=== PATIENT | female | born 1950 | race Caucasian/White ===

== ENCOUNTER → 2019-11-13 08:51 | Outpatient (CLI) | payer MEDICARE, SELFPAY ==
--- NOTE | ~2019-11-13 | MMUS_ITS ---
EXAMINATION: MM diagnostic matilda LT w wayne, US breast LT limited HISTORY: Six-month follow-up for probably benign left breast asymmetry TECHNIQUE: Craniocaudal, mediolateral, and mediolateral oblique 3-D tomosynthesis images of the left breast were performed and synthetic 2-D images were generated. Spot compression views are also obtain ed. CAD analysis was submitted and interpreted. High resolution limited left breast ultrasound was pe rformed. COMPARISON: 03/30/2019, 03/23/2019, 01/21/2018 BREAST PARENCHYMAL COMPOSITION: There are scattered areas of fibroglandular density. FINDINGS: MAMMOGRAPHIC FINDINGS: There is an approximately 7 mm irregular, equal density mass with spiculated margins in the posterior third of the breast at the 10:00 location 6.5 cm from the nipple. No associated calcification is carole ntified. ULTRASOUND: There is a subtle 8 mm x 6 mm irregular hypoechoic mass with indistinct and angular margins at the 10 :00 location 5 cm from the nipple. The mass demonstrates posterior acoustic shadowing without definit e internal vascularity. IMPRESSION: 1. Suspicious mass at the 10:00 location in the left breast. 2. Ultrasound-guided biopsy is recommended. BI-RADS category 4, suspicious findings. Reviewed, dictated and finalized at location A. WEAVER IMPRESSION: 1. Suspicious mass at the 10:00 location in the left breast. 2. Ultrasound-guided biopsy is recommended. BI-RADS category 4, suspicious findings.
== END ==
PROVIDERS: Visit Provider Obstetrics & Gynecology Gynecology
DX: R92.8 Other abnormal and inconclusive findings on diagnostic imaging of breast (principal)
CPT/HCPCS: 76642; 77061; 77065; G0279

== ENCOUNTER 2019-12-01 10:32 | Outpatient (CLI) | payer MEDICARE, SELFPAY ==
--- NOTE | ~2019-12-01 | MMUS_ITS ---
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 Ultrasound-guided core biopsy is requested to evaluate for malignancy. TECHNIQUE AND FINDINGS: The risks and potential benefits of the procedure were discussed with the patient, and written inform ed consent was obtained. After sterile preparation of the left breast, 1% lidocaine was utilized for local anesthesia. 1% lidocaine with epinephrine was used for deep anesthesia. A 10G vacuum-assisted biopsy gun needle was advanced through to the outer edge of the region of inter est from a medial approach utilizing sonographic guidance. A total of three tissue core samples were obtained through the lesion. An Inrad tissue marker clip was then placed at the biopsy site. Hemost asis was achieved. The patient tolerated procedure well and there was no evidence of immediate complication. The patien t was given verbal instructions partly is from the department. Left breast mammograms to document ti ssue marker clip placement. The tissue samples were submitted to surgical pathology for histologic an alysis.] IMPRESSION: 1. Successful ultrasound-guided vacuum-assisted biopsy of left breast mass with tissue marker placem ent. Please refer to pathology report for histologic analysis. Reviewed, dictated and finalized at location A. TAIN OPERATOR IMPRESSION: 1. Successful ultrasound-guided vacuum-assisted biopsy of left breast mass wit h tissue marker placement. Please refer to pathology report for histologic anal ysis.
== END 2019-12-01 10:33 | disposition home or self-care (01) ==
PROVIDERS: Visit Provider Surgery
DX: R92.8 Other abnormal and inconclusive findings on diagnostic imaging of breast (principal)
CPT/HCPCS: 19083; 88305; A4648

== ENCOUNTER 2020-05-23 13:24 | Outpatient (CLI) | payer MEDICARE, SELFPAY ==
--- NOTE | ~2020-05-23 | US_ITS ---
EXAMINATION: US thyroid DATE: 05/23/2020 14:07 INDICATION: Thyroid nodule. Parathyroid adenoma. TECHNIQUE: Multiple ultrasound images of the thyroid were obtained. COMPARISON: 05/25/2019 and 09/17/2016 FINDINGS: The right thyroid lobe measures 6.1 x 2.8 x 2.0 cm. The left thyroid lobe measures 5.1 x 2.1 x 1.8 c m. There are a couple wider than tall solid hypoechoic nodules without echogenic foci in the right t hyroid lobe (TI-RADS 4, moderately suspicious , FNA if >=1.5 cm, annual followup is >1 cm), the large st in the deep mid right thyroid lobe measures 2.3 x 1.1 x 1.7 cm and the smaller at the lower pole m easures 1.3 x 1.3 x 0.8 cm. The larger was biopsied on 10/16/2016 yielding benign pathology on fine-ne edle aspiration. Both are not significantly changed since the prior study. There is coarsened echotex ture throughout the thyroid. No other nodules identified. IMPRESSION: 1. Thyroid nodules, unchanged since 09/17/2016. Recommend continued ultrasound follow-up. Reviewed, dictated and finalized at location A.
== END 2020-05-23 13:25 | disposition home or self-care (01) ==
PROVIDERS: PCP Family Medicine; Visit Provider Internal Medicine Endocrinology, Diabetes & Metabolism
DX: E04.2 Nontoxic multinodular goiter (principal); E21.3 Hyperparathyroidism, unspecified
CPT/HCPCS: 76536

== ENCOUNTER → 2020-06-28 14:15 | Outpatient (CLI) | payer MEDICARE, SELFPAY ==
--- NOTE | ~2020-06-28 | MMUS_ITS ---
EXAMINATION: MM diagnostic matilda BI w wayne, US breast LT limited HISTORY: Six-month follow-up post left breast biopsy. Screening of right breast. TECHNIQUE: Bilateral full field ML, MLO and cc and spot left ML, MLO and cc 3-D tomosynthesis images were performed and synthetic 2-D images were generated. CAD analysis was submitted and interpreted. H igh resolution upper inner quadrant left breast ultrasound was performed. COMPARISON: 03/23/2019 bilateral digital screening mammogram 03/30/2019 diagnostic left digital mammogram and left Limited breast ultrasound 11/13/2019 diagnostic left digital mammogram and limited left breast ultrasound 12/01/2019 left ultrasound guided breast biopsy BREAST PARENCHYMAL COMPOSITION: There are scattered areas of fibroglandular density. FINDINGS: MAMMOGRAPHIC FINDINGS: An approximately 6 mm thick related mass is suggested in the posterior aspect of the upper inner quad rant of the left breast. A biopsy marker situated approximately 1 cm anteriorly. There are scattered bilateral benign calcifications. No suspicious mass or architectural distortion i s noted elsewhere. ULTRASOUND: At 10:00 5 cm from the nipple there is a hypoechoic irregular shadowing lesion measuring approximatel y 6.4 x 4.6 mm dimension. Ultrasound-guided biopsy is recommended. IMPRESSION: Asymmetric approximately 6 mm irregular opacity in the posterior aspect of the left breast at 10:00 5 cm from nipple; repeat ultrasound-guided biopsy is recommended BI-RADS category 4, suspicious findings. Reviewed, dictated and finalized at location A. IMPRESSION: Asymmetric approximately 6 mm irregular opacity in the posterior aspect of the left breast at 10:00 5 cm from nipple; repeat ultrasound-guided biopsy is recom mended BI-RADS category 4, suspicious findings.
== END ==
PROVIDERS: Visit Provider Surgery
DX: R92.8 Other abnormal and inconclusive findings on diagnostic imaging of breast (principal)
CPT/HCPCS: 76642; 77062; 77066; G0279

== ENCOUNTER 2020-07-13 11:07 | Outpatient (CLI) | payer MEDICARE, SELFPAY ==
--- NOTE | ~2020-07-13 | MR_ITS ---
MR breast BI wo/w con 07/14/2020 13:33 CDT INDICATION: Abnormal breast mass. Palpable breast lump. Previous benign biopsy. TECHNIQUE: MRI of the breasts perform using standard protocol pre-and post IV contrast with the follo wing sequences: Axial T2 STIR, axial T1, axial vibrant T1 with fat suppression precontrast and multip hasic postcontrast. COMPARISON: Comparison to multiple prior studies sequentially, with oldest reviewed study dated 01/04. FINDINGS: There is moderate background parenchymal enhancement. There are in numerable enhancing nonm ass-like foci in both breasts. At 2:00, 4 cm from the nipple, middle third there is an irregular shap ed mass with rapid washout enhancement measuring 1.5 x 0.8 x 1.0 cm. At 10:00, 4.7 cm from the nipple there is an irregular shaped area of nonmasslike enhancement measuring 1.4 x 0.3 x 0.9 cm. There is rapid washout enhancement. At 6:00 there is nonmasslike enhancement measuring 1 x 0.5 x 0.7 cm, 4.6 c m from the nipple. At 8:00, 5.3 cm from the nipple there is nonmasslike enhancement measuring 5 x 4 x 6 mm with rapid washout enhancement. The 4:00, 4.8 cm from the nipple, there is a focus of rapid was hout enhancement. No evidence of signal abnormalities in the axillary or internal mammary node distri butions. LEFT BREAST: There is moderate background parenchymal enhancement. At 12:00, 5.6 cm from the nipple t here is a slightly irregular shaped mass measuring 8 x 4 x 9 mm with rapid washout enhancement. At 10 :00, 6.5 cm from the nipple, there is an 8 x 7 x 5 mm mass with rapid washout enhancement. At 10:00, 5.2 cm from the nipple there is a 6 x 5 x 4 mm enhancing mass with rapid washout kinetics. At 10:00, 5.9 cm from the nipple there is a foci of rapid washout enhancement measuring 4 x 4 x 4 mm. No eviden ce of signal abnormalities in the axillary or internal mammary node distributions. IMPRESSION: 1: Multiple bilateral abnormally enhancing masses as well as innumerable areas of nonmasslike enhance ment in both breasts. Second Look complete bilateral breast ultrasound is recommended for complete ev aluation. At least one of the enhancing left breast masses likely corresponds to the mass identified on recent ultrasound dated 06/28/2020. Recommend radiologist be present during the examination for cor relation purposes. BI-RADS CATEGORY 0 - INCOMPLETE STUDY, NEED ADDITIONAL IMAGING EVALUATION. Reviewed, dictated and finalized at location A. IMPRESSION: 1: Multiple bilateral abnormally enhancing masses as well as innumerable areas of nonmasslike enhancement in both breasts. Second Look complete bilateral sascha st ultrasound is recommended for complete evaluation. At least one of the enhan cing left breast masses likely corresponds to the mass identified on recent ult rasound dated 06/28/2020. Recommend radiologist be present during the examinatio n for correlation purposes. BI-RADS CATEGORY 0 - INCOMPLETE STUDY, NEED ADDITIONAL IMAGING EVALUATION.
[2020-07-13 12:11] LABS: Estimated Glomerular Filt Rate > 60
== END 2020-07-13 11:08 | disposition home or self-care (01) ==
PROVIDERS: PCP Family Medicine; Visit Provider Surgery
DX: N63.22 Unspecified lump in the left breast, upper inner quadrant (principal); N63.11 Unspecified lump in the right breast, upper outer quadrant
CPT/HCPCS: 77049; A9577; C8908

== ENCOUNTER → 2020-08-03 08:50 | Outpatient (CLI) | payer MEDICARE, SELFPAY ==
--- NOTE | ~2020-08-03 | US_ITS ---
EXAMINATION: US breast LT limited HISTORY: Patient presents for second look ultrasound examination after MRI. A left breast biopsy was performed in November 2019 which returned a benign result. Post biopsy mammogram demonstrates the bi opsy marker approximately 1.5 cm anterior to the mammographic finding. Diagnostic mammogram and ultra sound were performed on 06/28/2020 at which time repeat biopsy was recommended. Subsequent to that exa mination, breast MRI was performed on 07/13/2010 demonstrated a persistent mass in the inner left sascha st. TECHNIQUE: Limited left breast ultrasound was performed. FINDINGS: There is an 8 mm oval, not parallel, hypoechoic mass with indistinct margins at the 10:00 l ocation 5 cm from the nipple. The mass demonstrates posterior acoustic shadowing and peripheral vascu larity. Complete bilateral breast ultrasound was recommended on intervening MRI examination due to no nmass enhancement in the breasts however this is felt to represent background parenchymal enhancement and therefore targeted left breast ultrasound was performed. IMPRESSION: Suspicious left breast mass for which repeat biopsy is recommended. Given that ultrasound biopsy has been previously attempted, the mass is somewhat subtle on the provided cine images, and that the mass is visible on mammographic images, recommendation would be for stereotactic biopsy. This plan and re asoning were discussed with both the patient and Dr. Spence. BI-RADS category 4, suspicious findings. Reviewed, dictated and finalized at location A. IMPRESSION: Suspicious left breast mass for which repeat biopsy is recommended. Given that ultrasound biopsy has been previously attempted, the mass is somewhat subtle on the provided cine images, and that the mass is visible on mammographic images, recommendation would be for stereotactic biopsy. This plan and reasoning were discussed with both the patient and Dr. Spence. BI-RADS category 4, suspicious findings.
== END ==
PROVIDERS: PCP Family Medicine; Visit Provider Surgery
DX: R92.8 Other abnormal and inconclusive findings on diagnostic imaging of breast (principal)
CPT/HCPCS: 76642

== ENCOUNTER 2020-08-12 10:08 | Outpatient (CLI) | payer MEDICARE, SELFPAY ==
--- NOTE | ~2020-08-12 | MM_ITS ---
MM post biopsy diagnostic LT, MM stereotactic specimen LT, MM stereotactic bx LT EXAMINATION: MM post biopsy diagnostic LT, MM stereotactic specimen LT, MM stereotactic bx LT INDICATION: Abnormal mass in the left breast. Stereotactic core biopsy is requested evaluate for mal ignancy.] TECHNIQUE AND FINDINGS: The risks and potential benefits of the procedure were discussed with the patient and written informe d consent was obtained. The patient was placed in the prone position clustered at the table with the left breast in craniocaudal compression, and the area of interest was localized and targeted utilizi ng digital imaging with stereotaxis. After sterile preparation of the skin, 1% lidocaine was utilized for local anesthesia at the skin pun cture site and 1% lidocaine with epinephrine was utilized for deeper local anesthesia/is about the bi opsy site. A 9G [place] vacuum assisted biopsy needle was advanced to the level of the mass of interes t from a cephalad approach utilizing stereotactic guidance and a total of 6 tissue core biopsies were obtained. A specimen radiograph demonstrates that the calcifications of interest are included within the tissue cores. A tissue marker clip was then placed at the biopsy site. The needle was removed and hemosta sis was achieved. The patient tolerated the procedure well and there is no evidence of significant i mmediate complication. The patient was given verbal as well as written postprocedural instructions p rior to discharge from the department. Tissue cores were submitted to surgical pathology for histolo gic analysis. A 2-view left unilateral digital mammogram was obtained post procedure and this demonstrates that the tissue marker clip is in expected position. IMPRESSION: 1. Successful stereotactic biopsy of mass in the upper inner quadrant of the left breast, followed b y tissue marker clip placement. Please refer to pathology report for histologic analysis. Reviewed, dictated and finalized at location A. 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 Successful stereotactic biopsy of mass in the upper inner quadrant of the l eft breast, followed by tissue marker clip placement. Please refer to patholog y report for histologic analysis. IMPRESSION: 1. Successful stereotactic biopsy of mass in the upper inner quadrant of the l eft breast, followed by tissue marker clip placement. Please refer to patholog y report for histologic analysis.
== END 2020-08-12 10:09 | disposition home or self-care (01) ==
PROVIDERS: PCP Family Medicine; Visit Provider Surgery
DX: N63.22 Unspecified lump in the left breast, upper inner quadrant (principal)
CPT/HCPCS: 19081; 77065; 88305; 88342; A4648

== ENCOUNTER 2020-08-18 11:58 | Outpatient (CLI) | payer MEDICARE, SELFPAY ==
--- NOTE | 2020-08-18 12:00 | ECG_ITS ---
Measurements Intervals [place] Rate: 54 P: 43 RI: 220 QRS: 32 QRSD: 106 T: 44 QT: 431 QTc: 412 Interpretive Statements SINUS BRADYCARDIA WITH FIRST DEGREE AV BLOCK BASELINE ARTIFACT- I, III, AVR, AVL, AVF ABNORMAL ECG Electronically Signed On 08-18-2020 14:51:07 GARAGE WORKER by Rajesh Lu D.O.
[2020-08-18 12:31] LABS: Basophils Absolute Auto 0.1 K/mm3 (0.0-0.1); Basophils Percent Auto 1.1 % (0.2-1.2); Eosinophils Absolute Auto 0.6 K/mm3 (0-0.3); Eosinophils Percent Auto 6.9 % (0-4.4); Hematocrit 44.2 % (37.0-47.0); Hemoglobin 14.1 g/dL (12.0-15.0); Immature Granulocyte Absolute 0.02 K/mm3 (0.00-0.031); Immature Granulocyte Percent A 0.2 % (0-0.5); Lymphocytes Absolute Auto 1.95 K/mm3 (0.9-3.2); Lymphocytes Percent Auto 23.9 % (18.3-44.2); Mean Corpuscular HGB Conc 31.9 g/dl (32-36); Mean Corpuscular Volume 90.9 fl (80-100); Mean Platelet Volume 9.4 fl (7.4-10.4); Monocytes Absolute Auto 0.6 K/mm3 (0.1-0.6); Monocytes Percent Auto 7.1 % (2.6-8.5); Neutrophils Percent Auto 60.8 % (45.5-73.1); Platelet Count Result 366 k/mm3 (150-375); Red Blood Count 4.86 M/mm3 (4.2-5.4); Red Cell Distribution Width 13.2 % (11.5-14.5); White Blood Count 8.2 K/mm3 (4.5-10.0)
[2020-08-18 12:44] LABS: Alanine Aminotransferase 19 U/L (4-35); Albumin Level 4.7 g/dL (3.5-5.1); Alkaline Phosphatase 88 U/L (38-126); Anion Gap 6 mmol/L (8-16); Aspartate Amino Transferase 35 U/L (14-36); Bilirubin,Total 0.6 mg/dL (0.2-1.3); Blood Urea Nitrogen 10 mg/dL (7-17); Calcium 11.2 mg/dL (8.4-10.2); Carbon Dioxide 34 mmol/L (22-30); Chloride 104 mmol/L (98-107); Estimated Glomerular Filt Rate > 60; Glucose 111 mg/dL (65-105); Potassium 4.4 mmol/L (3.4-5.0); Sodium 144 mmol/L (137-145)
[2020-08-18 12:52] LABS: Lithium 0.8 mmol/L (0.6-1.2)
== END 2020-08-18 11:59 | disposition home or self-care (01) ==
LOC: ANHSURGERY 12:00
PROVIDERS: Anesthesiology; PCP Family Medicine; Visit Provider Surgery
DX: Z01.818 Encounter for other preprocedural examination (principal); R00.1 Bradycardia, unspecified; I44.2 Atrioventricular block, complete
CPT/HCPCS: 36415; 80053; 80178; 85025; 93005

== ENCOUNTER 2020-08-26 00:15 | Outpatient (CLI) | payer MEDICARE, SELFPAY ==
[2020-08-26 19:24] LABS: SARS-CoV-2 RNA PCR Negative
== END 2020-08-26 00:16 | disposition home or self-care (01) ==
LOC: ANHCOVIDDT 00:16
PROVIDERS: Anesthesiology; PCP Family Medicine; Visit Provider Surgery
DX: Z01.812 Encounter for preprocedural laboratory examination (principal); Z20.828 Contact with and (suspected) exposure to other viral communicable diseases
CPT/HCPCS: 87635; C9803; U0003

== ENCOUNTER 2020-08-29 00:52 | Day surgery (SDC) | payer MEDICARE, SELFPAY ==
[2020-08-17 15:10] VITALS: BMI 22.6
[2020-08-29] VITALS (13 sets, daily range): BP systolic 124–179; BP diastolic 58–97; PULSE 51–86; RESP 12–20; TEMP 36.1–36.6; O2SAT 92–100
--- NOTE | ~2020-08-29 | NM_ITS ---
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 The procedure was performed by Dr. Montanez. IMPRESSION: 1. Status post left breast injection of Technetium 99M sulfur colloid for purpose of sentinel lymph node biopsy. Reviewed, dictated and finalized at location A. URE ARTIST IMPRESSION: 1. Status post left breast injection of Technetium 99M sulfur colloid for purp ose of sentinel lymph node biopsy.
--- NOTE | ~2020-08-29 | MM_ITS ---
MM needle loc DATE: 08/29/2020 08:34 INDICATION: Preoperative mammographically guided wire localization of barrel mammographic marker in u pper inner posterior left breast TECHNIQUE: The purpose of the procedure, technique and potential competitions were discussed with the patient. The patient verbalized understanding and gave consent. Timeout procedure was performed. The left breast was placed in biopsy grid apparatus and mediolateral position. The skin was prepared with sterile Betadine solution. 1% lidocaine local anesthetic was administered to the skin. A 7 cm [employer] needle was introduced into the area adjacent to the barrel radiopaque marker from medial approach. ML exposure confirmed appropriate direction of the needle. Craniocaudal exposures were mad e to assist with adjustment of the needle depth appropriately. Once in position, the wire was engaged through the tip of the needle and the needle was withdrawn. Final ML and CC exposures reveal the wire in immediate contiguity with the barrel mammographic marker and associated soft tissue mass. IMPRESSION: Successful mammographically guided wire localization of barrel radiopaque marker in poste rior aspect of upper inner quadrant of left breast Reviewed, dictated and finalized at Location A. Reviewed, dictated and finalized at location A. RIAL EXPEDITOR IMPRESSION: Successful mammographically guided wire localization of barrel radi opaque marker in posterior aspect of upper inner quadrant of left breast
--- NOTE | ~2020-08-29 | MM_ITS ---
MM surgical specimen LT DATE: 08/29/2020 10:46 INDICATION: Surgical excision of barrel radiopaque biopsy marker TECHNIQUE: Single noncompression digital mammographic exposure of surgical breast soft tissue specime n COMPARISON: 08/29/2020 left mammographic localization FINDINGS: The barrel and ribbon biopsy markers are present within the surgical specimen. IMPRESSION: Successful surgical excision of biopsy markers Reviewed, dictated and finalized at Location [facility]. Reviewed, dictated and finalized at location A. 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
--- NOTE | 2020-08-29 08:00 | SUR.PREOP ---
0720-[facility] AWARE PT HERE AND READY TO TRANSPORT, SHE WILL CALL US WHEN READY. 0745-PT TRANSPORTED PER W/C TO MAMMOGRAPHY.
[2020-08-29] MEDS: LACTATED RINGERS 1,000 ML 30 ML IV CONT ×3 (08:50→14:40)
--- NOTE | 2020-08-29 08:56 | WPDHPUPDATE1 ---
History and Physical Update Update Date/Time: 08/29/20 08:56 History and Physical has been reviewed, including an updated exam of the patient. There are NO changes in the patient's condition. Risks, benefits, and alternatives of a Left sentinel lymph node biopsy, Left needle localized breast lumpectomy, possible left axillary dissection have been discussed and questions answered. Patient agrees to proceed with procedure.
--- NOTE | 2020-08-29 09:01 | WPDANESEPPF ---
Anes - Initial Pre Proc Eval Procedure: Operation Date: 08/29/20 09:30 Proposed Procedures p Left Breast Lumpectomy with [place] Lymph Node Biopsy - Fadi Spence MD s Left Breast Biopsy with Ultrasound and/or Mammogram Guided Needle Localization - Fadi Spence MD Date/Time: 08/29/20 09:01 Surgeon: Fadi Spence MD Pre Op Diagnosis: left breast CA Patient Data Age: 70 Gender: F Height: 5 ft 4 in Weight: 59.5 kg Last Vital Signs Temp 36.6 C 08/29/20 06:45 Pulse 64 08/29/20 06:45 Resp 20 08/29/20 06:45 BP 150/77 H 08/29/20 06:45 Pulse Ox 100 08/29/20 06:45 Allergies Allergy/AdvReac Type Severity Reaction Status Date / Time Penicillins Allergy Unknown rash Verified 08/29/20 07:42 Home Medications Medication Instructions Recorded Confirmed Type atorvastatin 20 mg tablet 20 mg PO DAILY 11/19/19 08/29/20 History lithium carbonate 300 mg capsule 300 mg PO BID 11/19/19 08/29/20 History lorazepam 0.5 mg tablet 0.25 mg PO HS 11/19/19 08/29/20 History multivitamin 1 tablet PO DAILY 11/19/19 08/29/20 History cholecalciferol (vitamin D3) 125 125 mcg PO DAILY 03/29/20 08/29/20 History mcg (5,000 unit) capsule aspirin-caffeine [Anacin] 2 tablet PO Q6H PRN 08/17/20 08/29/20 History propranolol 30 mg PO BID 08/17/20 08/29/20 History Patient hx anesthesia problems: none Family hx anesthesia problems: none PMFSH Past Medical History Medical History Bipolar 1 disorder High cholesterol History of asthma HTN (hypertension) Surgical History Surgical History H/O breast biopsy Hx laparoscopic cholecystectomy 10 + yrs ago Family History Family History Mother Diabetes mellitus Hypertension Grandparent Malignant neoplasm of prostate Diabetes mellitus Cerebrovascular accident Other Family history of hearing loss Social History Social History Smoking status: Never smoker Alcohol intake: never Substance use: never Living arrangements: with family Additional living arrangements comments: Gender identity (if verbalized by the patient): Female Spiritual care concerns: No Anes - Eval Final PreProcedure Day of Procedure 08/29/20 09:01 Patient weight: normal Heart: regular rate and rhythm Lungs: clear to auscultation Airway: Mallampati scale class II Neurological: alert and oriented Last oral intake: >/= 8 hours ASA classification: III Emergent: no Anesthetic plan: proceed Anesthesia type and monitoring: general LMA and standard monitoring Informed Consent: The patient's anesthetic plan and its attendant risks and benefits were discussed with the patient/family/POA. Questions were solicited and answers provided to the satisfaction of the patient/family/POA.
[2020-08-29] MEDS: CLINDAMYCIN 900 MG/D5W 50 ML 900 MG/50 ML PIGGYBACK 50 MG IVPB (09:07)
--- NOTE | 2020-08-29 11:25 | SUR.OPER ---
EBL:10cc
--- NOTE | 2020-08-29 11:54 | PM.PROC ---
Procedure Note - Detailed Date of procedure: 08/30/20 Pre-op diagnosis: left breast CA Procedure performed: needle localized Left breast lumpectomy Left sentinel lymph node biopsy times 1 injection of Lymphazurin blue (for identification sentinel lymph). Description of procedure: The patient was seen pre-operatively in the holding area, and I marked the patient on the operative side. The left. She was brought to the operating room and anesthesia delivered. She was prepped and draped in the usual sterile fashion. The arm on this side was placed into a stockinette and wrapped with a Coband. It was then draped into the field sterile. A timeout was performed confirming patient and site of surgery. Then after inspection of the breast I carefully used Lymphazarin blue, 6 cc, to inject 1 cc in the subcuticular area the areola at the edge of the areola at [address]. This was done with a 22 gauge needle and then the breast was massaged for 1 minute. An axillary incision was made, and the subcutaneous tissues were dissected toward the area of the second intercostal-brachail nerve with electrocautery and Approximately 1 7 Vater deep in this area there appeared to be either a small subcutaneous lymph node or a lipoma. This was excised tested with the Navigator probe and was not hot therefore labeled as a separate specimen lipoma versus lymph node subcutaneous non sentinel lymph node tissue. Then the clavipectoral fascia was incised with electrocautery. Using the sentinel lymph node probe, the sentinel lymph node was identified and the count in vivo was 84 . I carefully dissected out what appeared to be a lymph node that was marked with high counts and also with a good amount of blue green lymphatics heading directly to it. There was some blue green dye that appeared to be in the lymph node in the center of the approximately 2 x 1 cm area of the Lt.axillary tissue removed. Then an ex vivo 10- second count of 760 was recorded. The count in the axilla after removing this lymph node was between 24 and 54, for background noise. We could still see several channels of dark blue to dye and following these there appeared to be a possible very small lymph node which was also excised and sent as sentinel lymph node #2. (later reported by pathology as no lymph node tissue present. ) Therefore, only 1 sentinel lymph node was removed. The sentinel lymph node # 1 was sent fresh for pathologic evaluation with touch preps. The wound was irrigated, hemostased, and closed with 3-0 Vicryl and 4-0 Monocryl. That wound was draped away with a sterile towel and the operative breast was examined. The localizing wire was noted to be entering the breast in the upper inner quadrant angled slightly transverely and laterally. This was reviewed on the mammogram films. The localizing wire was entering just above and medial to the nipple-areolar complex in that area. A transverse incision was made along the wire and the tissue surrounding the distal end of the wire was removed widely with electrocautery. I believe that I dissected down into the breast at least 1.5 cm before starting to widen my excision area around the end of the wire. The specimen was oriented with the use of silk sutures placing a long suture lateral and a short suture superior on the specimen. We also noted that the wire was coming in at the superficial or anterior border. I did send the breast tissue for fresh tissue exam, immediate report requested at pathology. We waited to hear from pathology. First we heard that touch preps on the sentinel lymph node # 1 were negative. As I a began the incision for the sentinel lymph node biopsy we ran into what appeared to be either a lipoma or a superficial subcutaneous lymph node. This was sent as a non sentinel lymph node since it did not have any radioactivity in it when probed with the Navigator probe. Will await permanent pathology on this. Following this pat
[2020-08-29] MEDS: fentaNYL CITRATE INJ (*CRX) 100 MCG/2 ML VIAL 25 MCG IV PUSH ×3 (11:58→12:21)
[2020-08-29] MEDS: ONDANSETRON INJ 4 MG/2 ML VIAL IV PUSH (14:46)
[2020-08-29] MEDS: diphenhydrAMINE HCl INJ 50 MG/ML VIAL 25 MG IV PUSH (15:42)
== END 2020-08-29 16:30 | disposition home or self-care (01) ==
PROVIDERS: PCP Family Medicine; Visit Provider Surgery
PROC: (CPT 19301; principal; 2020-08-29 09:30)
PROC: (CPT 19301; 2020-08-29 09:30)
DX: C50.212 Malignant neoplasm of upper-inner quadrant of left female breast (principal); Z17.0 Estrogen receptor positive status [ER+]; D17.22 Benign lipomatous neoplasm of skin and subcutaneous tissue of left arm; I10 Essential (primary) hypertension; E78.00 Pure hypercholesterolemia, unspecified; F31.9 Bipolar disorder, unspecified
CPT/HCPCS: 19301; 38525; 19281; 38792; 76098; 88300; 88305; 88307; 88329; 88333; 88342; A9270; A9520; C1713; C1769; J1100; J1170; J1200; J2250; J2405; J2704; J3010; J7120

== ENCOUNTER → 2020-09-12 13:49 | Outpatient (CLI) | payer MEDICARE, SELFPAY ==
--- NOTE | ~2020-09-12 | US_ITS ---
EXAMINATION: US pelvic complete DATE: 09/12/2020 14:32 INDICATION: Postmenopausal bleeding TECHNIQUE: Multiple transabdominal sonographic images of the pelvis were obtained. Transvaginal exami nation was attempted however technologist noted uterine prolapse. COMPARISON: 02/27/2017; CT, 02/05/2019 FINDINGS: The uterus measures 4.8 x 2.8 cm. The endometrial complex measures 3 mm. A chronic calcific ation of the uterine body is noted. The ovaries are not visualized however no adnexal abnormality is seen. There is no free fluid in the pelvis. IMPRESSION: 1. No sonographic correlate for the patient's symptoms. Reviewed, dictated and finalized at location A. 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
== END ==
PROVIDERS: PCP Family Medicine; Visit Provider Obstetrics & Gynecology Gynecology
DX: Z95.0 Presence of cardiac pacemaker (principal)
CPT/HCPCS: 76856

== ENCOUNTER → 2021-05-22 14:17 | Outpatient (CLI) | payer MEDICARE, SELFPAY ==
--- NOTE | ~2021-05-22 | MM_ITS ---
EXAMINATION: MM diagnostic matilda BI w wayne HISTORY: History of left breast cancer TECHNIQUE: Craniocaudal, mediolateral, and mediolateral oblique 3-D tomosynthesis images of the breas ts were performed and synthetic 2-D images were generated. CAD analysis was submitted and interpreted . COMPARISON: 06/28/2020, 11/13/2019, 03/30/2019, 01/21/2018, 01/04/2017, 04/16/2016 BREAST PARENCHYMAL COMPOSITION: There are scattered areas of fibroglandular density. FINDINGS: There are changes of interval left lumpectomy. No suspicious mass, calcification, or cinthya ectural distortion are identified in either breast. IMPRESSION: 1. No mammographic evidence of malignancy. 2. Recommend routine screening mammography in one year. BI-RADS Category 2: Benign finding(s). Reviewed, dictated and finalized at location A.
== END ==
PROVIDERS: Visit Provider Internal Medicine Hematology & Oncology
DX: C50.212 Malignant neoplasm of upper-inner quadrant of left female breast (principal); Z17.0 Estrogen receptor positive status [ER+]; M81.0 Age-related osteoporosis without current pathological fracture
CPT/HCPCS: 77062; 77066; G0279

== ENCOUNTER → 2021-06-01 10:44 | Outpatient (CLI) | payer MEDICARE, SELFPAY ==
--- NOTE | ~2021-06-01 | DEXA_ITS ---
Bone Density Report Name: Janelle Garcia Age: 71 Sex: Female Ethnicity: White Date of : 1950 Indication: osteopenia; cancer; postmenopausal Referring Provider: Jovany Silverman Study: Bone densitometry was performed. Exam Date: June 01, 2021 Accession number: [id number] Bone Density: Region BMD T-score Z-score Classification AP Spine (L1, L3, L4) 1.092 0.4 2.6 Normal Femoral Neck (Left) 0.649 -1.8 0.1 Osteopenia Total Hip (Left) 0.789 -1.3 0.3 Osteopenia Femoral Neck (Right) 0.679 -1.5 0.3 Osteopenia Total Hip (Right) 0.763 -1.5 0.1 Osteopenia Total Hip Mean 0.776 -1.4 0.2 Osteopenia World Health Organization criteria for BMD impression classify patients as: Normal (T-score at or above -1.0), Osteopenia (T-score between -1.0 and -2.5), or Osteoporosis (T-score at or below -2.5). 10-year Fracture Risk(1): Major Osteoporotic Fracture 10% Hip Fracture 1.9% Reported Risk Factors: [place] (), Neck BMD=0.649, BMI=22.1 (1) FRAX(R) Version 3.08. Fracture probability calculated for an untreated patient. Fracture probability may be lower if the patient has received treatment. Previous Exams: Region Exam Age BMD T-score BMD Change BMD Change Date g/cm2 vs Baseline vs Previous AP Spine(L1, L3, L4) 06/01/2021 71 1.092 0.4 -0.163 0.015 05/25/2019 69 1.076 0.2 -0.178 -0.011 04/26/2017 67 1.087 0.3 -0.168 -0.016 05/21/2014 64 1.103 0.5 -0.152 0.062* 09/07/2011 61 1.041 -0.1 -0.213 -0.061* 06/17/2007 57 1.102 0.4 -0.153 -0.153 03/11/2003 52 1.255 1.8 Total Hip(Left) 06/01/2021 71 0.789 -1.3 -0.213 -0.050* 05/25/2019 69 0.839 -0.8 -0.163 0.026 04/26/2017 67 0.813 -1.1 -0.189 -0.044* 05/21/2014 64 0.858 -0.7 -0.145 -0.034* 09/07/2011 61 0.892 -0.4 -0.111 -0.008 06/17/2007 57 0.900 -0.3 -0.102 -0.102 03/11/2003 52 1.002 0.5 Total Hip(Right) 06/01/2021 71 0.763 -1.5 -0.193 -0.011 05/25/2019 69 0.774 -1.4 -0.183 -0.026 04/26/2017 67 0.800 -1.2 -0.157 -0.034* 05/21/2014 64 0.833 -0.9 -0.123 0.023 09/07/2011 61 0.810 -1.1 -0.146 -0.068* 06/17/2007 57 0.879 -0.5 -0.077 -0.077 03/11/2003 52 0.956 0.1 *Denotes significance at 95% conf
== END ==
PROVIDERS: PCP Family Medicine; Visit Provider Internal Medicine Hematology & Oncology
DX: M81.0 Age-related osteoporosis without current pathological fracture (principal); M85.852 Other specified disorders of bone density and structure, left thigh; M85.851 Other specified disorders of bone density and structure, right thigh
CPT/HCPCS: 77080

== ENCOUNTER → 2021-08-11 12:26 | Outpatient (CLI) | payer MEDICARE, SELFPAY ==
--- NOTE | ~2021-08-11 | US_ITS ---
EXAMINATION: US thyroid EXAM DATE: 08/11/2021 12:49 INDICATION: E21.3 - Hyperparathyroidism, unspecified. TECHNIQUE: Multiple grayscale and Doppler images of the thyroid were obtained (by a technologist who performed the scan) and subsequently reviewed. Individual nodules and recommendations may be reporte d in accordance with TI-RADS system as designated by the 2017 ACR White Paper TI-RADS committee. Comp tawanna is made to prior examination from 05/23/2020. FINDINGS: The right thyroid lobe measures 5.4 x 2.7 x 2.0 cm, the left measuring 4.3 x 2.0 x 1.7 cm. Dimensions are mildly enlarged. Mildly diffusely heterogeneous thyroid echogenicity. There are 2 right thyroid lobe category TR 4 nodules, largest in the deep mid pole measuring 2.6 x 1. 2 x 1.6 cm (previously biopsied, benign results), next largest in the lower pole measuring 1.5 x 0.9 x 1.1 cm. Both are unchanged. IMPRESSION: 1. Stable multinodular goiter demonstrating 5 years stability, likely benign. Reviewed, dictated and finalized at location A.
== END ==
PROVIDERS: PCP Family Medicine; Visit Provider Internal Medicine Endocrinology, Diabetes & Metabolism
DX: E21.3 Hyperparathyroidism, unspecified (principal); E04.2 Nontoxic multinodular goiter
CPT/HCPCS: 76536

== ENCOUNTER 2021-08-15 13:47 | Outpatient (CLI) | payer MEDICARE, SELFPAY ==
--- NOTE | ~2021-08-15 | CT_ITS ---
EXAMINATION: CT chest abdomen pelvis w con EXAM DATE: 08/15/2021 14:31 INDICATION: Left-sided breast cancer. TECHNIQUE: Spiral CT of the chest, abdomen and pelvis was performed following intravenous injection o f 100 mL Omnipaque 350. Axial, coronal and sagittal images chest, abdomen and pelvis were reviewed. Coronal maximum intensity pixel images of chest reviewed. The dose-length product (DLP) for this ex amination was 290.88 mGy-cm. The exposure was tailored according to patient size (auto mA exposure c ontrol), and iterative reconstruction (ASIR) was used as additional dose reduction technique. Compari son is made to prior examination from 02/05/2019 (abdomen pelvis CT). FINDINGS: CHEST: Spiculated region in the left breast superomedially, could be postoperative scarring. There ar e left axillary surgical clips Right upper lobe calcified granuloma. There are no pleural or pericar dial effusions. Tracheobronchial tree is patent. There is no mediastinal, hilar or axillary lymph adenopathy. There is no pneumothorax. Heart normal in size. No evidence of coronary arterial ca lcification. ABDOMEN PELVIS: The liver, spleen, adrenal glands and pancreas are unremarkable. There are cholecyst ectomy clips. Portal and splenic veins are patent. Kidneys enhance symmetrically. There is no hydr onephrosis. Small renal lesions consistent with cysts. There is pelvic prolapse, with cystic region anteriorly which is probably the base of the bladder. Th is has progressed compared to 2019. Uterus is unremarkable. There is a cystic right ovarian lesion me asuring 3 cm without any evidence of complexity. Could be benign cystic ovarian neoplasm in this age group, size not significantly changed compared to 2019. The bladder is unremarkable. There is no re troperitoneal or pelvic lymphadenopathy. The appendix is not positively visualized. There is no pericecal inflammatory change to suggest appe ndicitis. There is moderate sigmoid colonic diverticulosis. There is no adjacent inflammatory change to suggest diverticulitis. The stomach and small bowel are unremarkable. There is expected amount o f colonic stool. No free intraperitoneal gas. There are no osteoblastic or osteolytic lesions carole ntified. IMPRESSION: 1. Left breast spiculated region which could be postoperative scarring. Left axillary lymph node dis section. No evidence chest abdomen or pelvic metastatic disease. 2. Progression of pelvic prolapse now containing portion of bladder base. 3. Right ovarian cystic lesion could be benign neoplasm. 4. Moderate sigmoid diverticulosis. Reviewed, dictated and finalized at location A. 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 Left breast spiculated region which could be postoperative scarring. Left a xillary lymph node dissection. No evidence chest abdomen or pelvic metastatic d isease. 2. Progression of pelvic prolapse now containing portion of bladder base. 3. Right ovarian cystic lesion could be benign neoplasm. 4. Moderate sigmoid diverticulosis.
[2021-08-15 14:18] LABS: Estimated Glomerular Filt Rate > 60
== END 2021-08-15 13:48 | disposition home or self-care (01) ==
LOC: ANHIMG 13:53
PROVIDERS: PCP Family Medicine; Visit Provider Internal Medicine Hematology & Oncology
DX: C50.212 Malignant neoplasm of upper-inner quadrant of left female breast (principal); Z17.0 Estrogen receptor positive status [ER+]; K57.30 Diverticulosis of large intestine without perforation or abscess without bleeding; N83.201 Unspecified ovarian cyst, right side
CPT/HCPCS: 71260; 74177; Q9967

== ENCOUNTER 2022-04-16 18:00 | Emergency (ER) | payer MEDICARE, SELFPAY ==
--- NOTE | ~2022-04-16 | XR_ITS ---
XR knee RT min 4V 04/16/2022 18:50 Indication: Right knee pain. Procedure: 4 views right knee Comparison: No prior studies for comparison. Findings: There is mild osteoarthritis of the right knee. There is depression of the lateral tibial p lateau, suspicious for an age-indeterminate fracture. There is a moderate joint effusion. No other fr acture identified. Impression: 1: Possible age indeterminate lateral tibial plateau fracture. Consider correlation with CT or MRI. 2: Small joint effusion. Reviewed, dictated and finalized at location A. Impression: 1: Possible age indeterminate lateral tibial plateau fracture. Consider correla tion with CT or MRI. 2: Small joint effusion.
[2022-04-16 18:35] VITALS: BP 158/95; PULSE 73; RESP 18; TEMP 36.8; O2SAT 100
--- NOTE | 2022-04-16 18:59 | ED.LOWEXIN ---
HPI - Extremity Injury (Lower) General Chief Complaint: Extremity Injury, Lower Stated Complaint: knee pain Time Seen by Provider: 04/16/22 19:00 Source: patient Mode of arrival: wheelchair Limitations: no limitations History of Present Illness HPI Narrative: 72-year-old female presented for complaint of right knee pain since yesterday. Denies injury. States she was shopping yesterday and felt more 'wobbling.' States today she stepped up one stair and felt excruciating pain to right knee, states the pain shot down her entire leg, and felt nausea nausea like she was going to pass out. Since then pain is only with ambulation, rates 8 out of 10. Minimal pain at rest. Using cane. Denies swelling or bruising to the knee, denies numbness, tingling, or weakness of the extremity. She takes NSAIDs as needed for pain. History of breast cancer, osteopenia, taking anastrozole. Related Data Home Medications Medication Instructions Recorded Confirmed multivitamin (One-A-Day Essential 1 tablet PO DAILY 11/19/19 03/13/22 tablet) cholecalciferol (vitamin D3) 125 50 mcg PO DAILY 03/29/20 03/13/22 mcg (5,000 unit) capsule propranolol 60 mg tablet 30 mg PO BID 08/17/20 03/13/22 anastrozole 1 mg tablet 1 mg PO DAILY 12/21/20 03/13/22 lorazepam 0.5 mg tablet 0.5 mg PO PRN PRN Anxiety 02/07/21 03/13/22 oxcarbazepine 300 mg tablet 300 mg PO HS PRN Insomnia 06/19/21 03/13/22 zinc gluconate 50 mg tablet 50 mg PO DAILY 06/19/21 03/13/22 atorvastatin 20 mg tablet 40 mg PO DAILY 08/23/21 03/13/22 Allergies Allergy/AdvReac Type Severity Reaction Status Date / Time Penicillins Allergy Unknown rash Verified 04/16/22 19:03 Review of Systems Review of Systems: CONSTITUTIONAL: Denies body aches, fever, chills CARDIOVASCULAR: Denies chest pain, palpitations, or edema. RESPIRATORY: Denies cough or dyspnea. GASTROINTESTINAL: Denies abdominal pain, nausea, vomiting, or diarrhea. SKIN: Denies rash, itching, or wounds. MUSCULOSKELETAL: Reports right knee pain NEUROLOGIC: Denies headache, numbness, tingling, or weakness. All systems reviewed & are unremarkable except as noted in HPI and below PMFSH Past Medical History Medical History Bipolar 1 disorder High cholesterol History of asthma HTN (hypertension) Surgical History Surgical History H/O breast biopsy Hx laparoscopic cholecystectomy 10 + yrs ago Family History Family History Mother Diabetes mellitus Hypertension Grandparent Malignant neoplasm of prostate Diabetes mellitus Cerebrovascular accident Other Family history of hearing loss Social History Social History Smoking status: Never smoker Alcohol intake: never Substance use: never Additional living arrangements comments: Gender identity (if verbalized by the patient): Female Spiritual care concerns: No Comments At time of signature, I have reviewed and agree with nursing past medical, surgical, social and family history unless otherwise noted. Please see nursing chart for further information. There is no relevant family history pertinent to the presenting complaint Exam Narrative: GENERAL: Well-appearing CHEST: Speaks in full sentences. No respiratory distress. HEART: Regular rate and rhythm. Normal and equal peripheral pulses. EXTREMITIES: Right lower extremity has normal strength and sensation, limited range of motion at knee, cannot tolerate full flexion/extension. No edema or ecchymosis, No point tenderness. No open wounds, or obvious deformity; pulse palpable and equal bilaterally, skin warm, dry, pink. Capillary refill less than 3 seconds. Using wheelchair SKIN: Warm, dry, no rash. NEURO: Alert and oriented, forgets PSYCH: Normal mood and affect Course
== END 2022-04-16 19:40 | disposition home or self-care (01) ==
PROVIDERS: Emergency Provider Nurse Practitioner Family
DX: M25.561 Pain in right knee (principal); E78.00 Pure hypercholesterolemia, unspecified; I10 Essential (primary) hypertension; J45.909 Unspecified asthma, uncomplicated; Z85.3 Personal history of malignant neoplasm of breast; M85.80 Other specified disorders of bone density and structure, unspecified site
CPT/HCPCS: 73564; 99213; G0463; L1830

== ENCOUNTER 2022-05-16 13:54 | Outpatient (CLI) | payer MEDICARE, SELFPAY ==
--- NOTE | ~2022-05-16 | MM_ITS ---
EXAMINATION: MM diagnostic matilda BI w wayne HISTORY: Personal history of left breast cancer TECHNIQUE: Craniocaudal, mediolateral, and mediolateral oblique 3-D tomosynthesis images of the breas ts were performed and synthetic 2-D images were generated. CAD analysis was submitted and interpreted . COMPARISON: 05/22/2021, 06/28/2020, 11/13/2019, 03/30/2019, 03/23/2019 FINDINGS: There are stable lumpectomy changes of the left breast. There is no suspicious mass, calcif ication, or architectural distortion in either breast to suggest malignancy. There has been no suspi cious interval change. IMPRESSION: 1. No mammographic evidence of malignancy. 2. Recommend routine screening mammography in one year. BI-RADS Category 2: Benign finding(s). Reviewed, dictated and finalized at location A.
== END 2022-05-16 13:55 | disposition home or self-care (01) ==
PROVIDERS: PCP Family Medicine; Visit Provider Internal Medicine Hematology & Oncology
DX: C50.212 Malignant neoplasm of upper-inner quadrant of left female breast (principal); Z17.0 Estrogen receptor positive status [ER+]
CPT/HCPCS: 77062; 77066; G0279

== ENCOUNTER 2022-06-08 15:49 | Outpatient (CLI) | payer MEDICARE, SELFPAY ==
--- NOTE | ~2022-06-08 | MR_ITS ---
EXAMINATION: MR knee RT wo con DATE: 06/08/2022 16:35 INDICATION: Right knee pain TECHNIQUE: Magnetic resonance imaging (MRI) of the right knee was performed without intravenous contr ast. Sequences included coronal PD-weighted FSE, coronal PD-weighted FS FSE, sagittal T2-weighted FS E, sagittal PD-weighted FS FSE and axial PD weighted fat saturated FSE. COMPARISON: Right knee radiographs dated 04/25/2022 FINDINGS: Medial compartment: Complete avulsion/radial tear at the posterior root of the medial meniscus. Horizontal linear increas ed signal in the posterior horn and posterior body of the medial meniscus which does not unambiguousl y contact the articular surface, equivocal for extension of a radial tear versus mucoid degeneration. Deep chondral ulceration with extensive partial thickness cartilage loss involving greater than 50% the cartilage thickness and with chondral surface irregularity along the anterior to posterior weight bearing medial femoral condyle. There is minimal subarticular edema-like signal change posteriorly. M oderate size marginal osteophytes along the weightbearing medial femoral condyle. Cartilage along the medial tibial plateau appears relatively preserved with tiny marginal osteophytes. Lateral compartment: Lateral meniscus is normal. Deep chondral fissure without degenerative subchondral changes at the med ial side of the lateral tibial plateau. Shallow chondral ulceration and fissuring involving less than 50% the cartilage thickness along the anterior and central weightbearing lateral femoral condyle. Patellofemoral compartment: Partial-thickness cartilage loss in places reaching full/near full-thickness at the patellar apical r idge and medial facet as well as the juxtaposed medial trochlea. Less severe partial thickness cartil age loss with scattered chondral surface regularity at the lateral trochlea and lateral patellar face t. Ligaments and tendons: Anterior and posterior cruciate ligaments are normal. Mild thickening and mild increased signal of th e proximal medial collateral ligament without surrounding edema consistent with mild scarring related to chronic sprain. The fibular collateral ligament complex is normal. The extensor mechanism is norm al. The visualized medial and lateral hamstring tendons as well as the iliotibial band are normal. Fluid: Moderate sized right knee joint effusion with mild synovitis at the suprapatellar pouch. No loose ost eochondral bodies identified. Osseous/other: Normal marrow signal. Mild cystic change in the proximal tibia near the posterior root of the medial meniscus. No fracture or pathologic marrow replacing process. IMPRESSION: 1. Full-thickness radial tear/avulsion at or near the posterior root of the medial meniscus. 2. Tricompartmental osteoarthritis, moderate severity at the medial side of the patellofemoral compar tment and mild in the medial and lateral compartments. 3. Mild scarring related to chronic sprain of the proximal medial collateral ligament. 4. Moderate-sized right knee joint effusion. Reviewed, dictated and finalized at location A. IMPRESSION: 1. Full-thickness radial tear/avulsion at or near the posterior root of the med ial meniscus. 2. Tricompartmental osteoarthritis, moderate severity at the medial side of the patellofemoral compartment and mild in the medial and lateral compartments. 3. Mild scarring related to chronic sprain of the proximal medial collateral li gament. 4. Moderate-sized right knee joint effusion.
== END 2022-06-08 15:50 | disposition home or self-care (01) ==
LOC: ANHIMG 15:57
PROVIDERS: PCP Family Medicine; Visit Provider Orthopaedic Surgery
DX: M25.561 Pain in right knee (principal); S83.241A Other tear of medial meniscus, current injury, right knee, initial encounter; M17.11 Unilateral primary osteoarthritis, right knee; M25.461 Effusion, right knee
CPT/HCPCS: 73721

== ENCOUNTER 2022-07-31 12:29 | Outpatient (CLI) | payer MEDICARE, SELFPAY ==
--- NOTE | 2022-07-31 12:51 | ECG_ITS ---
Measurements Intervals [place] Rate: 64 P: 61 MT: 180 QRS: 52 QRSD: 104 T: 45 QT: 403 QTc: 417 Interpretive Statements SINUS RHYTHM COMPARED TO ECG 08/18/2020 12:35:31 SINUS RHYTHM NOW PRESENT Electronically Signed On 07-31-2022 16:22:40 CDT by Maria Alejandra Ascencio M.D.
== END 2022-07-31 12:30 | disposition home or self-care (01) ==
LOC: ANHSURGERY 12:35
PROVIDERS: PCP Family Medicine; Visit Provider Orthopaedic Surgery
DX: I10 Essential (primary) hypertension (principal); Z01.818 Encounter for other preprocedural examination
CPT/HCPCS: 93005

== ENCOUNTER 2022-08-06 01:37 | Day surgery (SDC) | payer MEDICARE, SELFPAY ==
[2022-07-26 16:03] VITALS: BMI 21.9
--- NOTE | 2022-07-26 16:22 | PC.NURSE ---
Report to the Outpatient Waiting Room, entrance under the green pavilion located off [facility], at time _7:00AM on date __08/06/22 . Planned Procedure Time: __9:00AM . Time changes happen often and if your time is changed the preop area will call you the afternoon before. - You and your visitor will be asked to self-screen and do not enter if you have any COVID symptoms. - We encourage only one visitor and NO visitors under age 16 are allowed at this time. Your visitor will receive communication by the phone number that is given day of service. - The patient visitor is requested to social distance or may leave the building when not with patient due to restrictions. - A mask is required within the hospital. Patients may have clear liquids (water, carbonated beverages, clear teas, apple juice) until 3 hours prior to surgery with a maximum of 20 ounces. - No food from midnight until time of surgery Take the following medications with a SIP of water the morning of surgery: ____PROPRANOLOL, OXCARBAZEPINE, LORAZEPAM NEEDED Medications to discontinue per physician ____HOLD ALL VITAMINS/SUPPLEMENTS 3 DAYS PRE-OP- LAST DOSE 08/03/22, HOLD ANACIN PER DR RAMIREZ___ Please no make-up, nail kinyarwanda, hairspray, perfume, deodorant, or body powder the day of surgery. No jewelry (including any body piercings) or valuables the day of surgery, leave them at home. Please take a shower or bath the night before, or the morning of, surgery with an antibacterial soap. Wear comfortable, loose fitting clothing. Children are encouraged to wear pajamas. - Jewelry must be removed prior to entering the operating room. Rings and piercings that are not removed may be cut off. - The hospital will not accept responsibility for valuables. - Please leave all valuables, including medications, at home the day of surgery. If you are going home after surgery, a licensed combine driver must drive you home. - NO public transportation without another adult. - We recommend that an adult stay with you for 24 hours following discharge. - We also recommend that you do not drive, make important decision, drink alcoholic beverages, or take any drugs that were not prescribed by your health care provider for at least 24 hours after your discharge time. Follow any additional instructions given to you from your surgeon. If you or anyone in your household have experienced Covid symptoms in the past week, please notify your surgeon or the nurse liaison at the phone number below for possible testing. Telephone instructions given to __PATIENT and asked if any additional questions and then verbalized understanding. Patient advised to call surgeon office or pre surgery nurse liaison [phone] if any additional questions.
[2022-08-06] VITALS (7 sets, daily range): BP systolic 123–162; BP diastolic 60–79; PULSE 64–75; RESP 12–16; TEMP 36.2–37.4; O2SAT 100
--- NOTE | 2022-08-06 08:13 | WPDHPUPDATE1 ---
History and Physical Update Update Date/Time: 08/06/22 08:13 History and Physical has been reviewed, including an updated exam of the patient. There are NO changes in the patient's condition. Risks, benefits, and alternatives have been discussed and questions answered. Patient agrees to proceed with procedure.
--- NOTE | 2022-08-06 08:28 | WPDANESEPPF ---
Anes - Initial Pre Proc Eval Procedure: Operation Date: 08/06/22 09:00 Proposed Procedures p Right Knee Arthroscopy, Partial Meniscectomy - Jaden Bishop MD Date/Time: 08/06/22 08:28 Surgeon: Jaden Bishop MD Pre Op Diagnosis: Rt Knee Meniscal Tear Patient Data Age: 72 Gender: F Height: 1.63 m Weight: 56.6 kg Last Vital Signs Temp 37.4 C 08/06/22 08:06 Pulse 64 08/06/22 08:06 Resp 16 08/06/22 08:06 BP 162/79 H 08/06/22 08:06 Pulse Ox 100 08/06/22 08:06 O2 Del Method Room Air 08/06/22 08:06 Allergies Allergy/AdvReac Type Severity Reaction Status Date / Time Inhaled Anesthetics (Halogen Allergy Severe VOMITING, Verified 08/06/22 07:27 Based) AGITATION, AGGRESSIVE Penicillins Allergy Unknown rash Verified 08/06/22 07:27 Home Medications Medication Instructions Recorded Confirmed Type multivitamin (One-A-Day Essential 1 tablet PO DAILY 11/19/19 08/06/22 History tablet) cholecalciferol (vitamin D3) 125 50 mcg PO DAILY 03/29/20 08/06/22 History mcg (5,000 unit) capsule propranolol 60 mg tablet 30 mg PO BID 08/17/20 08/06/22 History anastrozole 1 mg tablet 1 mg PO DAILY 12/21/20 08/06/22 History lorazepam 0.5 mg tablet 0.5 mg PO PRN PRN Anxiety 02/07/21 08/06/22 History oxcarbazepine 300 mg tablet 300 mg PO HS 06/19/21 08/06/22 History zinc gluconate 50 mg tablet 50 mg PO DAILY 06/19/21 08/06/22 History ibuprofen 200 mg capsule 400 mg PO BID PRN Pain 06/13/22 08/06/22 History aspirin-caffeine 400 mg-32 mg 1 tablet PO Q6H PRN Headache 07/26/22 08/06/22 History tablet oxcarbazepine 300 mg tablet 150 mg PO QAM 07/26/22 08/06/22 History Patient hx anesthesia problems: post op nausea/vomiting and other (violent rxn to halogenated anes) Family hx anesthesia problems: none Results Review: All pre-operative results and documents have been reviewed as part of the pre-operative evaluation. FOR[facility]LY [facility] Past Medical History Medical History Bipolar 1 disorder Headache High cholesterol History of asthma HTN (hypertension) Right knee meniscal tear Right knee pain Surgical History Surgical History H/O breast biopsy Hx laparoscopic cholecystectomy 10 + yrs ago Family History Family History Mother Diabetes mellitus Hypertension Heart disease Grandparent Malignant neoplasm of prostate Diabetes mellitus Cerebrovascular accident Other Family history of hearing loss Social History Social History Smoking status: Never smoker Alcohol intake: never Substance use: never Living arrangements: with family Additional living arrangements comments: [place] Gender identity (if verbalized by the patient): Female Spiritual care concerns: No Anes - Eval Final PreProcedure Day of Procedure 08/06/22 08:28 Patient weight: normal Heart: regular rate and rhythm Lungs: clear to auscultation Airway: Mallampati scale class III and special considerations (small opening) poor opening Neurological: alert and oriented Last oral intake: >/= 8 hours ASA classification: III Emergent: no Anesthetic plan: proceed Anesthesia type and monitoring: regional spinal and standard monitoring Results Review: All pre-operative results and documents have been reviewed as part of the pre-operative evaluation. Informed Consent: The patient's anesthetic plan and its attendant risks and benefits were discussed with the patient/family/POA. Questions were solicited and answers provided to the satisfaction of the patient/family/POA.
[2022-08-06] MEDS: ACETAMINOPHEN 500 MG TABLET 1000 MG PO (08:29)
[2022-08-06] MEDS: LACTATED RINGERS 1,000 ML 30 ML IV CONT ×2 (08:29→09:39)
[2022-08-06] MEDS: KETOROLAC 15 MG/ML VIAL (*BKC) IV PUSH (08:32)
[2022-08-06] MEDS: ceFAZolin 2 GM/D5W 50 ML 2 GM/50 ML BAG IVPB (08:42)
[2022-08-06] MEDS: LIDOCAINE HCL 1% LOCAL INJ 20 ML VIAL 10 ML INFILTRATE (09:42)
--- NOTE | 2022-08-06 09:46 | W.PM.PROC2 ---
Procedure Note - Detailed Date of Procedure 08/06/22 Pre-op Diagnosis Rt Knee Meniscal Tear Post-op Diagnosis Other (Right knee medial meniscal tear with extensive synovitis) Procedure Performed Right knee arthroscopy with partial medial meniscectomy and extensive synovectomy Surgeon Jaden Bishop MD Anesthesia Spinal Description of Procedure The patient was identified and proper site identified and she was taken to the operating room, transferred to the OR table placing her supine taking care to pad the torso and extremities. After general anesthetic induction and intubation, a nonsterile tourniquet was placed high on the right thigh but was not inflated. The right lower extremity was positioned, prepped and draped in usual sterile fashion. 10 cc of 1% lidocaine was injected into the subcutaneous tissue in the area of the portals at start of the procedure, and an additional 10 at the end. The portals were established and the arthroscopy was carried out. There was extensive synovitis particularly in the pouch and medial gutter. These areas were debrided with the shaver and the ArthroCare Wand was then used for intra-articular hemostasis. Although there was fraying and fibrillation of the articular meniscal cartilage laterally, the meniscus was stable anterior posterior cruciate ligaments were in continuity. Medially the meniscus had tearing at the posterior horn to the root and this part was unstable. This was contoured back to stable rim with basket forceps and a shaver. Arthrocare Wand again used for hemostasis. The knee was flushed with a copious amount of arthroscopic fluid and equipment was removed. Portals were closed with three O nylon suture and a sterile dressing was applied. She tolerated the procedure well, was awakened, extubated and taken to recovery area in stable condition. There were no known intraoperative complications. Estimated blood loss was negligible; she received perioperative antibiotics. Estimated Blood Loss 10 Tourniquet Time 0 Drains No Packing No Pathology None sent Complications No immediate complications Condition Stable Disposition PACU [facility] Billing Surgery - Charge Forward: Surgery Billing ([id number], [id number])
--- NOTE | 2022-08-06 10:03 | SUR.PHASEI ---
Patient states, My legs are still numb and tingling but I could feel you touching them. Patient can brass pickler legs off bed without assistance post spinal as well.
== END 2022-08-06 11:50 | disposition home or self-care (01) ==
PROVIDERS: PCP Family Medicine; Visit Provider Orthopaedic Surgery
PROC: (CPT 29870; principal; 2022-08-06 09:00)
DX: M23.321 Other meniscus derangements, posterior horn of medial meniscus, right knee (principal); M65.861 Other synovitis and tenosynovitis, right lower leg; I10 Essential (primary) hypertension; E78.00 Pure hypercholesterolemia, unspecified; F31.9 Bipolar disorder, unspecified
CPT/HCPCS: 29881; 97161; A9270; J0690; J1100; J1885; J2250; J2405; J2704; J3010; J7120

== ENCOUNTER → 2022-09-13 12:56 | Outpatient (CLI) | payer MEDICARE, SELFPAY ==
--- NOTE | ~2022-09-13 | US_ITS ---
EXAMINATION: US thyroid DATE: 09/13/2022 13:19 INDICATION: Nontoxic single thyroid nodule. TECHNIQUE: Multiple ultrasound images of the thyroid were obtained. COMPARISON: Ultrasound 08/11/2021, 09/17/2016 FINDINGS: The right thyroid lobe measures 5.9 x 2.7 x 2.2 cm. The left thyroid lobe measures 5.3 x 1.8 x 1.6 c m. In the right thyroid lobe, there is a 2.4 cm solid, hypoechoic, wider than tall nodule with ill-d efined margin without echogenic foci (TI-RADS TR4), stable from 09/17/2016. In the right thyroid lobe , there is a 1.6 cm solid, hypoechoic, wider than tall nodule with ill-defined margin without echogen ic foci (TR4), stable from 09/17/2016. In the left thyroid lobe, there is a 5 mm solid, hypoechoic, w ider than tall nodule with smooth margin without echogenic foci (TR4). IMPRESSION: 1. Multinodular goiter, likely not clinically significant. No follow-up is needed. Reviewed, dictated and finalized at location A. 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 Multinodular goiter, likely not clinically significant. No follow-up is need ed.
== END ==
PROVIDERS: PCP Family Medicine; Visit Provider Internal Medicine Endocrinology, Diabetes & Metabolism
DX: E04.2 Nontoxic multinodular goiter (principal)
CPT/HCPCS: 76536

== ENCOUNTER 2022-09-14 11:30 | Outpatient (RCR) | payer MEDICARE, SELFPAY ==
--- NOTE | 2022-08-08 13:32 | PTOPEVAL1 ---
Assessment and note entered by Gwendolyn Villalobos, PT Evaluation Information Assessment Status Evaluation Diagnosis s/p knee menisectomy Onset 08-06-22 Subjective Information doing OK since surgery; taking tylenol only; using wheeled walker; using ice on her knee; have not started any exercises for knee; Reported Pain Level Pain Score Self Report Additional Pain Score Comments pain range of 0-2/10 in R knee, over patella and posterior crease of knee; sleep OK; is using ice, elevation and been resting since surgery; Assessment PT Clinical Summary Janelle is s/p R knee arthroscopy/meniscectomy 2 days ago. Prior to surgery, she was active and indep with all home and self care tasks. Since surgery, she has been using the wheeled walker, with resting, elevating and ice to knee. With the evaluation, she has decreased strength and ROM of R knee flexion and extension motions, (-10') to 115'; is using the wheeled walker and poor gait pattern. Skilled PT services are indicated for modalities to decrease pain and swelling, therapeutic exercises to increase knee flexion and extension ROM and strength, with progression of gait to lesser or no device as tolerated. And education for HEP and gait device/pattern. Plan of Care Interventions Electrical Stimulation,Hot Pack/Cold Pack,Manual Therapy,Neuro Re-education,Patient/Caregiver Education,Therapeutic Activities,Therapeutic Exercise PT Services Indicated Yes Treatment Frequency and 2x/wk for 2 weeks Duration These treatments will address the objective and functional deficits as defined above. The patient will be advanced safely and appropriately in order for the patient to progress towards his/her prior level of function. Additional exercises will be introduced and as well as a comprehensive home exercise program upon discharge, if needed, ?to ensure carryover of functional gains achieved in the clinic. This treatment plan has been reviewed and agreement upon by the patient.
--- NOTE | 2022-08-23 16:06 | PTOPPROG ---
Assessment and note entered by Gregoria Mireles DPT Evaluation Information Assessment Status Evaluation Diagnosis s/p knee menisectomy Onset 08-06-22 Subjective Information Assessment PT Clinical Summary The patient has made good progress in therapy and demonstrates improved LE range of motion and strength. She demonstrates improved gait and stair navigation as well. She continues to lack full terminal knee extension and will benefit from further therapy to address this impairment in order to return to prior level of function. Plan of Care Interventions Electrical Stimulation,Gait Training,Hot Pack/Cold Pack,Manual Therapy,Neuro Re-education,Patient/ Caregiver Education,Therapeutic Activities, Therapeutic Exercise,Self-Care/Home Management PT Services Indicated Yes Treatment Frequency and 1-2 times a week for 2-4 weeks Duration These treatments will address the objective and functional deficits as defined above. The patient will be advanced safely and appropriately in order for the patient to progress towards his/her prior level of function. Additional exercises will be introduced and as well as a comprehensive home exercise program upon discharge, if needed, ?to ensure carryover of functional gains achieved in the clinic. This treatment plan has been reviewed and agreement upon by the patient.
--- NOTE | 2022-09-14 12:30 | PTOPPROG ---
Assessment and note entered by Gregoria Mireles DPT Evaluation Information Assessment Status Evaluation Diagnosis s/p knee menisectomy Onset 08-06-22 Subjective Information Highest knee pain 7/10 and lowest 0/10. Returns to MD 10/02/22. Reports no recent use of assistive devices. Reports some difficulty with activities at home like getting down to put her tree skirt on , but overall does cooking and cleaning and doing laundry. Dressing and bathing independently. Is able to do stairs at home at times to take her dog out. Assessment PT Clinical Summary The patient has made some progress in therapy. She demonstrates improved lower extremity strength, improved 5 time sit to stand test, and improved stair pattern. She continues to report pain and lacks full knee extension (5 degrees). Due to her pain and range of motion impairments, therapists recommends continuing therapy until her follow up with the MD. Patient's preference is to only schedule 1 more visit the week before her MD appointment. Plan of Care Interventions Electrical Stimulation,Gait Training,Hot Pack/Cold Pack,Manual Therapy,Neuro Re-education,Patient/ Caregiver Education,Therapeutic Activities, Therapeutic Exercise,Self-Care/Home Management PT Services Indicated Yes Treatment Frequency and 1-3 visits prior to MD appointment 10/02/22 Duration These treatments will address the objective and functional deficits as defined above. The patient will be advanced safely and appropriately in order for the patient to progress towards his/her prior level of function. Additional exercises will be introduced and as well as a comprehensive home exercise program upon discharge, if needed, ?to ensure carryover of functional gains achieved in the clinic. This treatment plan has been reviewed and agreement upon by the patient.
--- NOTE | 2022-09-28 10:15 | PCPTNOTE ---
LATE entry for 09-27-22: pt called and canceled reeval due to bad weather;
--- NOTE | 2022-09-28 10:58 | PTOPPROG ---
Assessment and note entered by Gwendolyn Villalobos, PT Evaluation Information Assessment Status Progress - Pt Not Present Diagnosis s/p knee menisectomy Onset 08-06-22 Subjective Information pt not present Assessment PT Clinical Summary Janelle has received a total of 8 PT sessions, from August 08 to September 14. She then called and canceled one appointment. The last PT session was her reevaluation on , refer to that report for her status. She has a follow up appointment; If PT is to continue, please give her a new script These treatments will address the objective and functional deficits as defined above. The patient will be advanced safely and appropriately in order for the patient to progress towards his/her prior level of function. Additional exercises will be introduced and as well as a comprehensive home exercise program upon discharge, if needed, ?to ensure carryover of functional gains achieved in the clinic. This treatment plan has been reviewed and agreement upon by the patient.
--- NOTE | 2022-10-31 11:31 | PCPTNOTE ---
PHYSICAL THERAPY DISCHARGE 10-31-22 Attending Provider: Jaden Bishop MD Patient:Janelle Garcia Date of :1950 Mrs. Garcia has not returned for any further treatments since the reevaluation on 09/14/2022, therefore she will be discharged at this time. Refer to the progress report for her status at the last session. Thank you for referring Janelle to [facility].
== END 2022-10-29 13:38 | disposition home or self-care (01) ==
LOC: ANHPT 11:30
PROVIDERS: PCP Family Medicine; Visit Provider Orthopaedic Surgery
DX: Z48.89 Encounter for other specified surgical aftercare (principal); Z98.890 Other specified postprocedural states
CPT/HCPCS: 97110; 97112; 97140; 97161; 97530

== ENCOUNTER 2023-05-29 14:59 | Outpatient (CLI) | payer MEDICARE, SELFPAY ==
--- NOTE | ~2023-05-29 | MM_ITS ---
EXAMINATION: MM screening matilda BI w wayne HISTORY: Screening mammogram TECHNIQUE: Craniocaudal and mediolateral oblique 3-D tomosynthesis images were obtained and synthetic 2-D images were generated. CAD analysis was submitted and interpreted. COMPARISON: bilateral screening mammogram 05/22/2021 diagnostic bilateral mammogram BREAST PARENCHYMAL COMPOSITION: There are scattered areas of fibroglandular density. FINDINGS: Stable postoperative changes from left partial mastectomy for breast cancer again noted. Th ere is no evidence of suspicious mass, calcification, or architectural distortion to suggest malignan cy in either breast. There has been no suspicious interval change. IMPRESSION: 1. Status post left partial mastectomy for breast cancer. No mammographic evidence of malignancy. 2. Recommend routine screening mammography in one year. BI-RADS Category 2: Benign finding(s). Reviewed, dictated and finalized at location A. IMPRESSION: 1. Status post left partial mastectomy for breast cancer. No mammographic evide nce of malignancy. 2. Recommend routine screening mammography in one year. BI-RADS Category 2: Benign finding(s).
== END 2023-05-29 15:00 | disposition home or self-care (01) ==
LOC: ANHIMG 15:01
PROVIDERS: PCP Family Medicine; Visit Provider Internal Medicine Hematology & Oncology
DX: Z12.31 Encounter for screening mammogram for malignant neoplasm of breast (principal)
CPT/HCPCS: 77063; 77067

== ENCOUNTER 2023-06-07 12:54 | Outpatient (CLI) | payer MEDICARE, SELFPAY ==
--- NOTE | ~2023-06-07 | DEXA_ITS ---
Bone Density Report Name: BRENDA JACQUES Age: 73 Sex: Female Ethnicity: White Date of : 1950 Indication: hyperparathyroidism; height loss; cancer;postmenopausal Referring Provider: MIGUEL A CONDON Study: Bone densitometry was performed. Exam Date: June 07, 2023 Accession number: [id number] Bone Density: Region BMD T-score Z-score Classification AP Spine(L1, L2, L3) 1.088 0.6 2.9 Normal Femoral Neck (Left) 0.650 -1.8 0.2 Osteopenia Total Hip (Left) 0.826 -1.0 0.7 Normal Femoral Neck (Right) 0.650 -1.8 0.2 Osteopenia Total Hip (Right) 0.774 -1.4 0.3 Osteopenia Femoral Neck Mean 0.650 -1.8 0.2 Osteopenia Total Hip Mean 0.800 -1.2 0.5 Osteopenia World Health Organization criteria for BMD impression classify patients as: Normal (T-score at or above -1.0), Osteopenia (T-score between -1.0 and -2.5), or Osteoporosis (T-score at or below -2.5). 10-year Fracture Risk(1): Major Osteoporotic Fracture 11% Hip Fracture 2.2% Reported Risk Factors: [place] (), Neck BMD=0.650, BMI=22.3 (1) FRAX(R) Version 3.08. Fracture probability calculated for an untreated patient. Fracture probability may be lower if the patient has received treatment. Clinical Information Provided by Patient: Has used the following medications: Vitamin D Has the following medical conditions: Cancer, Hyperparathyroidism Patient maximum height was 64 Menopause Age: 50 No regular weight bearing exercise Onset of menses at age 13 Number of children 3 Impression: The patient has low bone mass, based on the Left Femoral Neck T-score. Discussion: BONE DENSITY IS LOW AT ONE OR MORE SKELETAL SITES. This patient's lowest T-score is low at one or more skeletal sites. It meets the World Health Organization's (WHO) criteria for ?low bone mass? (T-score between -1.0 and -2.5). The patient's 10-year risk of fracture as calculated by FRAX is less than the threshold where pharmacological therapy is recommended by the National Osteoporosis Foundation (NOF). However, all treatment decisions require clinical judgment and consideration of individual patient factors, including patient preferences, comorbidities, previous drug use, risk factors not captured in the FRAX model (e.g., frailty, falls, vitamin D deficiency, increased bone turnover, interval significant decline in bone density) and possible under or overestimation of fracture risk by FRAX. The patient should follow a healthful lifestyle (good nutrition with adequate calcium and vitamin D, and appropriate weight-bearing exercise). Follow-Up: Consider repeating this study in 2 to 3 years to reassess this patient's status, or sooner if there is some new clinical indication. Reported by: Dr. Reece Lyons on 06/07/2023 1:17:00 PM.
== END 2023-06-07 12:55 | disposition home or self-care (01) ==
LOC: CHSIMG 12:55
PROVIDERS: PCP Family Medicine; Visit Provider Internal Medicine Hematology & Oncology
DX: Z78.0 Asymptomatic menopausal state (principal); M85.89 Other specified disorders of bone density and structure, multiple sites
CPT/HCPCS: 77080

== ENCOUNTER 2023-09-15 12:39 | Outpatient (CLI) | payer MEDICARE, SELFPAY ==
--- NOTE | ~2023-09-15 | MR_ITS ---
MRI of the brain Clinical History: Memory loss Technique: Axial and sagittal T1-weighted images were acquired. These were followed by axial T2-weigh rene, diffusion weighted, gradient, and FLAIR images. Following intravenous administration of 10 cc Mu ltiHance gadolinium, T1-weighted fat-sat imaging was performed in the axial, coronal, and sagittal pl anes. Findings: There is minimal chronic white matter change in the periventricular matter bilaterally. No acute infarct, intracranial hemorrhage, or mass lesion. Ventricles and subarachnoid spaces are unremarkable. Orbits are unremarkable. Paranasal sinuses and m astoids are clear. Major intracranial flow voids are intact. Sagittal midline structures are unremarkable. No abnormal postcontrast enhancement identified. IMPRESSION: Minimal chronic white matter change, otherwise unremarkable exam. Reviewed, dictated and finalized at location M. ALT RAKER
== END 2023-09-15 12:40 | disposition home or self-care (01) ==
PROVIDERS: PCP Student in an Organized Health Care Education/Training Program; Visit Provider Student in an Organized Health Care Education/Training Program
DX: R41.3 Other amnesia (principal)
CPT/HCPCS: 70553; A9577

== ENCOUNTER 2024-05-10 03:19 | Observation (INO) | payer MEDICARE, SELFPAY ==
[2024-05-10] VITALS (35 sets, daily range): BP systolic 132–192; BP diastolic 53–154; PULSE 55–83; RESP 10–20; TEMP 36.2–37.2; O2SAT 96–100; BMI 37.9
--- NOTE | ~2024-05-10 | XR_ITS ---
Portable chest x-ray Comparison: None Clinical History: Chest pain Findings: Lungs are clear, without focal consolidation or pleural effusion. Cardiomediastinal silho uette is unremarkable. Bones and soft tissues are unremarkable. Impression: Clear lungs. Reviewed, dictated and finalized at location M. Impression: Clear lungs.
--- NOTE | ~2024-05-10 | CT_ITS ---
Clinical Indication: Pulmonary embolus CT Scan of the Chest with Contrast: Technique: Contiguous sections were acquired throughout the chest after intravenous administration of 100 cc of Omnipaque 350. Dose reduction technique was used on this scan by utilizing automated expos ure control and iterative reconstruction technique. The dose-length product (DLP) was 237.77 mGy-cm. COMPARISON: 08/15/2021 Findings: There is no evidence of any significant mediastinal, hilar or axillary lymphadenopathy. There is no f illing defect in the pulmonary arterial tree to suggest pulmonary embolus. There is no evidence of ao rtic dissection or aneurysm. There is no evidence of pleural or pericardial effusion. The lungs are clear, some subtle right upper lobe calcified granulomas. Images through the upper abdomen reveal no abnormalities. Impression: No evidence of pulmonary embolus, aortic dissection, or aortic aneurysm. No significant pulmonary abnormality. Reviewed, dictated and finalized at [facility]. Impression: No evidence of pulmonary embolus, aortic dissection, or aortic aneurysm. No significant pulmonary abnormality.
--- NOTE | ~2024-05-10 | CT_ITS ---
Non-contrast Head CT History: Head injury Technique: Axial non-contrast imaging of the brain was performed. Dose reduction technique was used on this scan by utilizing automated exposure control and iterative reconstruction technique. The dose -length product (DLP) was 681.00 mGy-cm. Findings: There is no evidence of intracranial hemorrhage, mass lesion, or acute infarct. Brain par enchyma appears normal. The ventricles and subarachnoid spaces are normal in size. The calvarium ap pears normal. The visualized paranasal sinuses and mastoid air cells are clear. Impression: No significant abnormality seen. Reviewed, dictated and finalized at location . Impression: No significant abnormality seen.
--- NOTE | ~2024-05-10 | US_ITS ---
Procedure: Duplex Doppler examination of the bilateral carotids. Indication: Syncope Technique: Real time, color-flow and pulse wave Doppler examination of the bilateral carotids was performed. Findings: Solis scale ultrasonography of the right neck demonstrated no significant plaque. There was demonstrat ion of normal color-flow and Doppler waveforms within the right common, internal and external carotid arteries. The peak systolic velocities in the right common, internal and external carotid arteries w ere demonstrated to be 96 cm/sec, 91 cm/sec and 149 cm/sec respectively. The right ICA/CCA ratio was 0.9.The proximal right internal carotid artery demonstrates 0% stenosis relative to the normal distal artery lumen diameter. Solis scale sonography of the left neck demonstrated no significant plaque. There was demonstration of normal color-flow and wave forms within the left common, internal and external carotid arteries. The peak systolic velocities in the left common, internal and external carotid arteries were demonstrate d to be 105cm/sec, 98 cm/sec and 131 cm/sec respectively. The left ICA/CCA ratio was 0.9. The proxima l left internal carotid artery demonstrates 0% stenosis relative to the normal distal artery lumen di ameter. There was antegrade flow demonstrated in the bilateral vertebral arteries. Impression: No hemodynamically significant stenosis of the bilateral internal carotid arteries. Antegrade flow in the bilateral vertebral arteries. Note: The methodology used is an indirect measurement validated against a direct method (such as the NASCET criteria) that compares diameters at the stenosis to the distal ICA. Reviewed, dictated and finalized at location . Impression: No hemodynamically significant stenosis of the bilateral internal carotid arter ies. Antegrade flow in the bilateral vertebral arteries. Note: The methodology used is an indirect measurement validated against a direct meth od (such as the NASCET criteria) that compares diameters at the stenosis to the distal ICA.
--- NOTE | 2024-05-10 03:24 | ECG_ITS ---
Test Date: 2024-05-10 03:26:21 Measurements Intervals [place] Rate: 69 P: 62 SD: 189 QRS: 56 QRSD: 110 T: 46 QT: 406 QTc: 438 Interpretive Statements SINUS RHYTHM NORMAL ELECTROCARDIOGRAM No previous ECG available for comparison Electronically Signed On 05-10-2024 09:04:38 CDT by Stephen Santillan M.D.
[2024-05-10 03:35] LABS: Basophils Absolute Auto 0.1 K/mm3 (0.0-0.1); Basophils Percent Auto 0.9 % (0.2-1.2); Eosinophils Absolute Auto 0.2 K/mm3 (0-0.3); Eosinophils Percent Auto 2.6 % (0-4.4); Hemoglobin 13.4 g/dL (12.0-15.0); Immature Granulocyte Absolute 0.06 K/mm3 (0.00-0.031); Immature Granulocyte Percent A 0.7 % (0-0.5); Lymphocytes Absolute Auto 3.48 K/mm3 (0.9-3.2); Lymphocytes Percent Auto 38.7 % (18.3-44.2); Mean Corpuscular HGB Conc 32.7 g/dl (32-36); Mean Corpuscular Hemoglobin 29.1 pg (26-34); Mean Corpuscular Volume 88.9 fl (80-100); Mean Platelet Volume 9.3 fl (7.4-10.4); Neutrophils Absolute Auto 4.2 K/mm3 (1.3-6.7); Neutrophils Percent Auto 46.1 % (45.5-73.1); Platelet Count Result 339 k/mm3 (150-375); Red Blood Count 4.61 M/mm3 (4.2-5.4); Red Cell Distribution Width 12.8 % (11.5-14.5)
[2024-05-10 03:46] LABS: Alanine Aminotransferase 26 U/L (6-35); Albumin Level 4.4 g/dL (3.5-5.1); Alkaline Phosphatase 88 U/L (38-126); Anion Gap 9 mmol/L (4-12); Aspartate Amino Transferase 46 U/L (14-36); Bilirubin,Total 0.4 mg/dL (0.2-1.3); Blood Urea Nitrogen 14 mg/dL (7-17); Calcium 11.5 mg/dL (8.4-10.2); Carbon Dioxide 28 mmol/L (22-30); Chloride 102 mmol/L (98-107); Estimated CRCL calculation 40 ml/min; Estimated Glomerular Filt Rate > 60; Glucose 183 mg/dL (65-110); Potassium 3.6 mmol/L (3.4-5.0); Sodium 139 mmol/L (137-145)
[2024-05-10] MEDS: SODIUM CHLORIDE 0.9% IV 1,000 ML 999 ML IV CONT (03:59)
[2024-05-10] MEDS: ONDANSETRON INJ 4 MG/2 ML VIAL IV PUSH (04:20)
--- NOTE | 2024-05-10 04:39 | ED.GENADULT ---
HPI - General Adult General Chief complaint: Weakness Stated complaint: glf, weakness, syncopal Time Seen by Provider: 05/10/24 03:28 History of Present Illness HPI narrative: Patient 74-year-old female who presents emergency department with chief complaint of syncope. The patient reports that she got up to go to the bathroom and had taken some Tums because she was having some chest discomfort. The patient reports that she was sitting on the toilet and passed out. Patient reports that she did urinate on herself reports no injury but does report that she feels very tired. Patient reports that chest pain has subsequently resolved a reports no prior history of cardiac disease reports that she did take a small dose of lorazepam prior to going to bed Related Data Home Medications Medication Instructions Recorded Confirmed multivitamin (One-A-Day Essential 1 tablet PO DAILY 11/19/19 03/24/24 tablet) cholecalciferol (vitamin D3) 125 50 mcg PO DAILY 03/29/20 03/24/24 mcg (5,000 unit) capsule propranolol 60 mg tablet 30 mg PO BID 08/17/20 03/24/24 anastrozole 1 mg tablet 1 mg PO DAILY 12/21/20 03/24/24 lorazepam 0.5 mg tablet 0.5 mg PO PRN PRN Anxiety 02/07/21 03/24/24 ibuprofen 200 mg capsule 400 mg PO BID PRN Pain 06/13/22 03/24/24 oxcarbazepine 300 mg tablet 150 mg PO QAM 07/26/22 03/24/24 atorvastatin 20 mg tablet 20 mg PO DAILY 03/25/23 03/24/24 Allergies Allergy/AdvReac Type Severity Reaction Status Date / Time Inhaled Anesthetics (Halogen Allergy Severe VOMITING, Verified 03/24/24 14:18 Based) AGITATION, AGGRESSIVE Penicillins Allergy Unknown rash Verified 03/24/24 14:18 Review of Systems Review of Systems: A 10 system review of systems was completed on the patient and is negative except for what is stated in the HPI. Nursing and ancillary documentation was reviewed. 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 Multinodular goiter Osteopenia Parathyroid disorder Primary hyperparathyroidism Right knee pain Thyroid nodule Vitamin D deficiency Surgical History Surgical History H/O breast biopsy H/O lumpectomy Hx laparoscopic cholecystectomy 10 + yrs ago Right knee meniscal tear Partial medial meniscectomy August 06, 2022 Family History Family History Mother Diabetes mellitus Hypertension Heart disease Grandparent Malignant neoplasm of prostate Diabetes mellitus Cerebrovascular accident Other Family history of hearing loss Social History Social History Smoking status: Never smoker Alcohol intake: never Substance use: never Living arrangements: with family Additional living arrangements comments: Occupation/Education: retired Gender identity (if verbalized by the patient): Female Spiritual care concerns: No Exam Narrative: GENERAL: Well-appearing, well-nourished, and in no acute distress. HEAD: Normocephalic, atraumatic. EYES: PERRLA and EOMI. ENT: Nares clear, no rhinorrhea or epistaxis. Mucous membranes moist. NECK: Supple. CHEST: Clear to auscultation. No respiratory distress. HEART: Regular rate and rhythm. No murmur heard. Normal peripheral pulses. ABDOMEN: Soft, nontender, nondistended, normal active bowel sounds. EXTREMITIES: Normal range of motion. No edema
[2024-05-10 04:49] LABS: Magnesium 1.9 mg/dL (1.6-2.3)
[2024-05-10 05:05] LABS: Troponin I < 0.012 ng/mL (0.000-0.034)
[2024-05-10 05:06] LABS: Partial Thromboplastin Time 26.3 Seconds (22.3-36.8); Prothrombin Time 13.6 Seconds (11.1-14.7)
[2024-05-10 05:13] LABS: Add Urine Microscopic? NO; Appearance Urine Clear (Clear); Bilirubin Urine Negative (Negative); Blood Urine Negative (Negative); Color Urine Yellow (Yellow); Glucose Urine UA Trace mg/dL (Negative); Ketones Urine Negative (Negative); Leukocyte Esterase Ur Negative LEU/UL (Negative); Nitrate Urine Negative (Negative); Protein Urine Negative (Negative); Specific Grav Ur 1.016 (1.001-1.035); Urobilinogen Urine 0.2 mg/dL (<2.0)
[2024-05-10 05:17] LABS: Lactic Acid Reflex 1.8 mmol/L (0.7-2.0)
[2024-05-10 05:20] LABS: NT Pro B Type Natriuretic Pept 85 pg/mL (19.9-100)
--- NOTE | 2024-05-10 05:27 | PC.NURSE ---
vrjames ahmadi - compazine 10mg iv push x 1
[2024-05-10] MEDS: PROCHLORPERAZINE EDISYLATE 10 MG/2 ML VIAL IV PUSH (05:37)
[2024-05-10] MEDS: SODIUM CHLORIDE 0.9% IV 100 ML (05:45)
--- NOTE | 2024-05-10 05:57 | PC.NURSE ---
pt unable to complete Orthostatic VS. Pt shifted up in the bed and became overwhelmingly nauseated again.
[2024-05-10 07:20] LABS: Troponin I < 0.012 ng/mL (0.000-0.034)
[2024-05-10 08:28] LABS: Cholesterol 187 mg/dL (0-200); HDL Direct 60 mg/dL; Magnesium 1.6 mg/dL (1.6-2.3); Triglycerides 156 mg/dL (<150)
[2024-05-10 08:30] LABS: Hemoglobin A1C 5.6 % (<5.7)
[2024-05-10 08:43] LABS: LDL Cholesterol Direct 86 mg/dL
--- NOTE | 2024-05-10 09:03 | ADMGEN ---
This patient, Janelle Garcia, was admitted to IMU Room 213-01. Patient/family oriented to hospital policies and general routines including ID bracelet, bed and alarms, visiting hours, pain management, procedures, bathroom and other care routines, personal items, smoking policy, room service/diet, and visiting hours. Information on how to activate the Rapid Response Team has been discussed. Patient/Family are encouraged to report perceived risks to care and to ask questions if they do not understand what they are told or what they should do.
[2024-05-10] MEDS: ASPIRIN 81 MG CHEWABLE TABLET PO (11:22)
[2024-05-10] MEDS: ENOXAPARIN 40 MG/0.4 ML SYRINGE SUB-Q (11:22)
[2024-05-10 12:43] LABS: Troponin I < 0.012 ng/mL (0.000-0.034)
--- NOTE | 2024-05-10 12:53 | PM.IMHP ---
H&P: HPI History of Present Illness Date/Time: 05/10/24 12:53 Chief Complaint: Collapse/loss of consciousness Narrative: Patient is a 74-year-old female who had presented to the emergency department with complaints of syncopal episode at home. Per who was at bedside and patient she had gotten up to use the restroom around 0 300 has been reported he heard a thud and upon arrival in to the bathroom patient was on the floor with loss of consciousness. They reported patient came to at about 30 seconds to a minute later. Patient states she felt some chest pain/pressure prior to event but denied any shortness of breath, nausea, vomiting, dizziness, fevers or chills during episode. EMS was called and patient was brought to the emergency department for further evaluation and treatment. Patient did report a moment of loss consciousness but she did not hit her head. Patient states she is headed several family stressors this week has felt extremely anxious prior to event. Patient has a past medical history of bipolar disorder, HTN, HLD, hyperparathyroidism, breast carcinoma, and chronic headaches. Initial findings in the emergency department labs unremarkable, troponins negative, CXR clear lungs, CT head with no acute issues, EKG SR with no acute st-t changes, and CTA negative for PE. Patient was admitted to IMU for further evaluation of syncope. Review of Systems Review of Systems: All systems reviewed & are unremarkable except as noted in HPI and below PMFSH Past Medical History Medical History Bipolar 1 disorder Body mass index (BMI) 21 to less than 23 (08/04/18) Cervical lymphadenopathy Colon polyps Dyspepsia Environmental allergies Headache High cholesterol High vitamin D level History of asthma HTN (hypertension) Hypercalcemia Hyperlipidemia Hyperparathyroidism Hypertrophy of palatine tonsil Invasive ductal carcinoma of left breast Lipoma of axilla Malignant neoplasm of upper-inner quadrant of left female breast Multinodular goiter Osteopenia Parathyroid disorder Primary hyperparathyroidism Right knee pain Thyroid nodule Vitamin D deficiency Surgical History Surgical History H/O breast biopsy H/O lumpectomy Hx laparoscopic cholecystectomy 10 + yrs ago Right knee meniscal tear Partial medial meniscectomy August 06, 2022 Family History Family History Mother Diabetes mellitus Hypertension Heart disease Grandparent Malignant neoplasm of prostate Diabetes mellitus Cerebrovascular accident Other Family history of hearing loss Social History Social History Smoking status: Never smoker Alcohol intake: never Substance use: never Do You Feel Safe in your Home?: Yes Lack of Transportation: No Lack of Food: Never True Current Housing: I Have Housing Concerned About Future Housing: No Difficulty Paying Gas/Electric Bills: No Difficulty Paying for Meds: No Currently Unemployed: No Education: High School Diploma/GED Difficulty w/ Childcare or Family Care: No Living arrangements: with family Additional living arrangements comments: Occupation/Education: retired Gender identity (if verbalized by the patient): Female Spiritual care concerns: No Meds Home Medications and Allergies Home Medications Medication Instructions Recorded Confirmed Type multivitamin (One-A-Day Essential 1 tablet PO DAILY 11/19/19 05/10/24 History tablet) cholecalciferol (vitamin D3) 125 50 mcg PO DAILY 03/29/20 05/10/24 History mcg (5,000 unit) capsule propranolol 60 mg tablet 30 mg PO BID 08/17/20 05/10/24 History anastrozole 1 mg tablet 1 mg PO DAILY 12/21/20 05/10/24 History lorazepam 0.5 mg tablet 0.5 mg PO DAILY PRN An
--- NOTE | 2024-05-10 15:21 | PC.NURSE ---
This patient, Janelle Garcia, was transferred to [[id number] ] on 05/10/24 at 1520. Personal belongings sent with patient. Report given to RN. Appropriate documentation sent with patient.
[2024-05-10] MEDS: ACETAMINOPHEN 325 MG TABLET 650 MG PO (21:28)
[2024-05-11] VITALS: PULSE 94
--- NOTE | 2024-05-11 | ECHO_ITS ---
Patient Info Name: Janelle Garcia Age: 74 years : 1950 Gender: Female Ht: 63 in Wt: 120 lbs BSA: 1.56 m2 HR: 74 bpm BP: 163 / 76 mmHg Heart Rhythm: Sinus Rhythm Technical Quality: Good Exam Date: 05/11/2024 11:10 AM Exam Location: Echo Lab Patient Status: Outpatient Admit Date: 05/10/2024 Staff Ordering Physician: Susanne Horn APRN Combination Building Inspector: Dom Montaño RDCS Attending Provider: Tricia Pettit APRN Referring Physician: Kory DAWN; Exam Type: CA echo doppler color flow Study Info Indications - SYNCOPE Complete two-dimensional, color flow and Doppler transthoracic echocardiogram is performed. Summary 1. Complete two-dimensional, color flow and Doppler transthoracic echocardiogram is performed. 2. Normal left ventricular size and hyperdynamic systolic function. 3. Grade 1 diastolic noncompliance. 4. No significant valvular dysfunction. Left Ventricle Left ventricular chamber dimension is normal. Left ventricular systolic function is hyperdynamic, estimated at >70%. The left ventricular diastolic function is grade I diastolic dysfunction. Right Ventricle Right ventricular chamber dimension is normal. Left Atria Left atrial chamber dimension is normal. Right Atria Right atrial chamber dimension is normal. Aortic Valve The aortic valve is normal. Pulmonic Valve The pulmonic valve is normal. Mitral Valve The mitral valve has normal leaflets. Tricuspid Valve The tricuspid valve leaflets are normal. There is trace tricuspid valve regurgitation. Pericardium/Pleural The pericardium appears normal. Aorta The aortic root size at the sinus of Valsalva is normal. Left Ventricular Outflow Tract Name Value Normal LVOT 2D LVOT Diameter 1.7 cm LVOT Doppler LVOT Peak Gradient 7 mmHg LVOT Mean Gradient 4 mmHg LVOT VTI 26 cm LVOT VTI/AV VTI Ratio 1.0 LVOT Stroke Volume 58 ml LVOT CO 4.5 l/min LVOT CI 2.9 l/min/m2 Pulmonic Valve Name Value Normal PV Doppler PV Peak Gradient 4 mmHg Mitral Valve Name Value Normal MV Doppler MV Decel [place] 242 cm/s2 MV PHT 57 ms MV Area (PHT) 3.9 cm2 4.0-5.0 MV Diastolic Function MV E Peak Velocity 47 cm/s MV A Peak Velocity 89 cm/s MV E/A 0.5
[2024-05-11 04:00] VITALS: PULSE 74
[2024-05-11 05:52] LABS: Basophils Percent Auto 0.3 % (0.2-1.2); Eosinophils Absolute Auto 0.1 K/mm3 (0-0.3); Eosinophils Percent Auto 0.9 % (0-4.4); Hematocrit 39.7 % (37.0-47.0); Hemoglobin 13.2 g/dL (12.0-15.0); Immature Granulocyte Absolute 0.02 K/mm3 (0.00-0.031); Immature Granulocyte Percent A 0.2 % (0-0.5); Lymphocytes Absolute Auto 2.14 K/mm3 (0.9-3.2); Lymphocytes Percent Auto 24.7 % (18.3-44.2); Mean Corpuscular HGB Conc 33.2 g/dl (32-36); Mean Corpuscular Hemoglobin 29.5 pg (26-34); Mean Corpuscular Volume 88.8 fl (80-100); Mean Platelet Volume 9.6 fl (7.4-10.4); Monocytes Absolute Auto 0.8 K/mm3 (0.1-0.6); Monocytes Percent Auto 8.9 % (2.6-8.5); Neutrophils Absolute Auto 5.6 K/mm3 (1.3-6.7); Platelet Count Result 285 k/mm3 (150-375); Red Blood Count 4.47 M/mm3 (4.2-5.4); Red Cell Distribution Width 13.1 % (11.5-14.5); White Blood Count 8.7 K/mm3 (4.5-10.0)
[2024-05-11 06:00] LABS: Alanine Aminotransferase 24 U/L (6-35); Albumin Level 4.2 g/dL (3.5-5.1); Alkaline Phosphatase 81 U/L (38-126); Anion Gap 11 mmol/L (4-12); Aspartate Amino Transferase 33 U/L (14-36); Bilirubin,Total 0.3 mg/dL (0.2-1.3); Blood Urea Nitrogen 11 mg/dL (7-17); Calcium 10.5 mg/dL (8.4-10.2); Carbon Dioxide 27 mmol/L (22-30); Chloride 103 mmol/L (98-107); Estimated CRCL calculation 60 ml/min; Estimated Glomerular Filt Rate > 60; Glucose 115 mg/dL (65-110); Potassium 3.5 mmol/L (3.4-5.0); Sodium 141 mmol/L (137-145)
[2024-05-11 08:00] VITALS: BP 156/68; PULSE 86; RESP 19; TEMP 36.8; O2SAT 99
[2024-05-11] MEDS: ASPIRIN 81 MG CHEWABLE TABLET PO (09:20)
[2024-05-11] MEDS: ENOXAPARIN 40 MG/0.4 ML SYRINGE SUB-Q (09:21)
--- NOTE | 2024-05-11 16:28 | PM.DS ---
DS: Admitting Diagnosis Discharge Date 05/11/24 Admitting Diagnosis Syncope Chest pain Nausea Blood glucose abnormal DS: Summary Hospital Course Reason for hospitalization: Syncope Chest pain Nausea Blood glucose abnormal Hospital Course: This is a 74-year-old female who presented to the hospital on 05/10/2024 with syncopal episode. Workup in the hospital included a chest x-ray which was negative. Head CT which was negative. Chest CT which was negative for PE, aortic dissection, or aortic aneurysm. Carotid Doppler study which shown no significant plaque in 0% stenosis in both the left and right internal carotid arteries. She had an echo done which showed normal LV systolic function with an estimated EF of greater than 70%, grade 1 diastolic dysfunction. Her labs were unremarkable. Troponins were negative. Thyroid was normal. UA was negative for any bacteria. Patient did state that she was under a lot of stress with her son and her daughter having some health issues that she was dealing with that day. She states she has not had any more episodes since that occurrence. She is also on propanolol 30 mg b.i.d. which has kept her heart rate in the 50s according to the patient and the and they had some concerns about restarting that medication. We went ahead and held that medication and started her on amlodipine for blood pressure control as that 1 dropper heart rate and told her to continue this treatment plan until she sees her primary care physician in 1 week. Her vital signs are stable, she is afebrile she is currently on room air. She is stable for discharge at this time. 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 Final diagnosis: Syncope Status at Discharge Cognitive/behavioral status at discharge: Alert oriented x4 Functional status at discharge: independent ambulation Overall status at discharge: patient is progressing back to baseline Time Spent with Patient Time attestation: Total time spent providing and/or coordinating discharge services: Time spent: Greater than 30 minutes Exam Narrative: General: In no acute distress, well nourished Head: atraumatic, no encephalopathy Eyes: EOMI, PERRLA, sclera clear ENT: moist mucous membranes, nasal passages clear Neck: supple, no JVD, no adenopathy, trachea midline Cardiac: Normal S1 and S2. RRR, No murmur, gallops or friction rubs, peripheral pulses intact. Respiratory: Lungs clear to auscultation, no adventitious lung sounds currently on room air Gastrointestinal: soft, non-distended, non-tender, normoactive bowel sounds. : voiding without difficulty. Extremities: moves all extremities well, no edema, good ROM, strength 5/5 Skin: clean, dry, intact. No wounds or lesions. Neuro: Alert and oriented x4, cranial nerves intact, no neuro deficits. Psych: normal mood, normal affect, interactive DS: Data Data Completed and Pending Completed studies during hospitalization: Chest x-ray x2 Head CT Chest CTA Carotid Doppler study Pending studies at discharge: None Labs on day of discharge: Labs from last 24 hours 05/11/24 05:17 WBC 8.7 RBC 4.47 Hgb 13.2 Hct 39.7 MCV 88.8 MCH 29.5 MCHC 33.2 RDW 13.1 Plt Count 285 MPV 9.6 Immature Gran % (Auto) 0.2 Neut % (Auto) 65.0 Lymph % (Auto) 24.7 [place] % (Auto) 8.9 H Eos % (Auto) 0.9 Baso % (Auto) 0.3 Lymph # (Auto) 2.14 [place] # (Auto) 0.8 H Eos # (Auto) 0.1 Baso # (Auto) 0.0 Abs Immat Gran (auto) 0.02 Absolute Neuts (auto) 5.6 Absolute Nucleated RBC 0.000 Nucleated RBC % 0.0 Sodium 141 Potassium 3.5 Chloride 103 Carbon Dioxide 27 Anion Gap 11 BUN 11 Creatinine 0.80 Estim Creat Clear Calc 60 Estimated GFR > 60 Glucose 115 H Calcium 10.5 H Total Bilirubin 0.3 AST 33 ALT 24 Alkaline Phosphatase 81 Total Protein 8.
== END 2024-05-11 17:06 | disposition home or self-care (01) ==
LOC: ANHED 06:52 → ANHIMU 11:52 → ANH3MEDSUR 05-11 06:59 → ANHIMU 05-12 08:32
PROVIDERS: Nurse Practitioner Family; Admitting Provider Internal Medicine; Emergency Provider Emergency Medicine; PCP Student in an Organized Health Care Education/Training Program; Visit Provider Nurse Practitioner Acute Care
DX: R55 Syncope and collapse (principal); R07.9 Chest pain, unspecified; E16.2 Hypoglycemia, unspecified; R11.0 Nausea; F31.9 Bipolar disorder, unspecified; E78.00 Pure hypercholesterolemia, unspecified; I10 Essential (primary) hypertension; E21.3 Hyperparathyroidism, unspecified; E04.2 Nontoxic multinodular goiter; E55.9 Vitamin D deficiency, unspecified; Z85.3 Personal history of malignant neoplasm of breast; Z79.811 Long term (current) use of aromatase inhibitors
CPT/HCPCS: 36415; 70450; 71045; 71275; 80053; 80061; 81003; 83036; 83605; 83735; 83880; 84145; 84443; 84484; 85025; 85610; 85730; 93005; 93306; 93880; 96361; 96372; 96374; 96375; 99285; A9270; G0378; J0780; J1650; J2405; J7030; Q9967

== ENCOUNTER 2024-06-04 15:18 | Outpatient (CLI) | payer MEDICARE, SELFPAY ==
--- NOTE | ~2024-06-04 | MM_ITS ---
EXAMINATION: MM screening matilda BI w wayne HISTORY: Screening TECHNIQUE: Craniocaudal and mediolateral oblique 3-D tomosynthesis images were obtained and synthetic 2-D images were generated. CAD analysis was submitted and interpreted. COMPARISON: History of left breast cancer BREAST PARENCHYMAL COMPOSITION: Not dense: There are scattered areas of fibroglandular density. FINDINGS: There is a new focal asymmetry in the upper inner quadrant of the right breast posterior th ird stable architectural distortion in the medial aspect of the left breast consistent with previous lumpectomy site and radiation therapy. IMPRESSION: 1. New focal right breast asymmetry upper inner quadrant of the right breast, posterior third. 2. Additional mammographic views and possible breast ultrasound are recommended. BI-RADS Category 0: Incomplete: Needs additional imaging evaluation. Reviewed, dictated and finalized at location B. IMPRESSION: 1. New focal right breast asymmetry upper inner quadrant of the right breast, p osterior third. 2. Additional mammographic views and possible breast ultrasound are recommended . BI-RADS Category 0: Incomplete: Needs additional imaging evaluation.
== END 2024-06-04 15:19 | disposition home or self-care (01) ==
LOC: ANHIMG 15:21
PROVIDERS: PCP Student in an Organized Health Care Education/Training Program; Visit Provider Nurse Practitioner Family
DX: Z12.31 Encounter for screening mammogram for malignant neoplasm of breast (principal); N64.89 Other specified disorders of breast
CPT/HCPCS: 77063; 77067

== ENCOUNTER 2024-07-06 12:54 | Outpatient (CLI) | payer MEDICARE, SELFPAY ==
--- NOTE | ~2024-07-06 | MMUS_ITS ---
EXAMINATION: MM diagnostic matilda RT w wayne, US breast RT complete HISTORY: Follow-up right breast asymmetry TECHNIQUE: Additional 3-D tomosynthesis images of the right breast were performed and synthetic 2-D i mages were generated. CAD analysis was submitted and interpreted. High resolution Limited right breas t ultrasound was performed. COMPARISON: Comparison to multiple prior studies sequentially, with oldest reviewed study dated 05/22. BREAST PARENCHYMAL COMPOSITION: Not dense: There are scattered areas of fibroglandular density. FINDINGS: MAMMOGRAPHIC FINDINGS: There are no suspicious masses, calcifications or architectural distortion in the right breast to sug gest malignancy. Right breast asymmetry compresses with spot views, compatible with superimposed fibr oglandular tissue. ULTRASOUND: Limited right breast ultrasound: Normal heterogeneous echotexture without focal solid or cystic mass. IMPRESSION: 1. No evidence for malignancy in the right breast. 2. Routine yearly screening mammogram and regular clinical breast examination are recommended. BI-RADS Category 1: Negative Reviewed, dictated and finalized at location B. IMPRESSION: 1. No evidence for malignancy in the right breast. 2. Routine yearly screening mammogram and regular clinical breast examination a re recommended. BI-RADS Category 1: Negative
== END 2024-07-06 12:55 | disposition home or self-care (01) ==
LOC: ANHIMG 12:54
PROVIDERS: PCP Student in an Organized Health Care Education/Training Program; Visit Provider Internal Medicine Hematology & Oncology
DX: R92.8 Other abnormal and inconclusive findings on diagnostic imaging of breast (principal)
CPT/HCPCS: 76641; 77061; 77065; G0279

== ENCOUNTER 2024-10-08 16:51 | Outpatient (CLI) | payer MEDICARE, SELFPAY ==
--- NOTE | ~2024-10-08 | US_ITS ---
EXAMINATION: US thyroid DATE: 10/08/2024 18:23 INDICATION: Nontoxic single thyroid nodule. TECHNIQUE: Multiple ultrasound images of the thyroid were obtained. COMPARISON: Ultrasound 09/13/2022, 05/23/20 FINDINGS: The right thyroid lobe measures 5.2 x 1.9 x 2.1 cm. The left thyroid lobe measures 4.4 x 1.4 x 1.7 c m. In the right thyroid lobe, there is a 2.6 cm solid, hypoechoic, wider than tall nodule with lobul ar margin without echogenic foci (TI-RADS TR4). In the right thyroid lobe, there is a 1.2 cm solid, h ypoechoic, wider than tall nodule with ill-defined margin without echogenic foci (TR4). IMPRESSION: 1. Thyroid nodules, stable from 05/23/2020, likely benign. No follow-up is needed. Reviewed, dictated and finalized at location A. CAL DIRECTOR/HEAD TEAM PHYSICIAN IMPRESSION: 1. Thyroid nodules, stable from 05/23/2020, likely benign. No follow-up is neede rolando
== END 2024-10-08 16:52 | disposition home or self-care (01) ==
LOC: ANHIMG 16:53
PROVIDERS: PCP Student in an Organized Health Care Education/Training Program; Visit Provider Internal Medicine Endocrinology, Diabetes & Metabolism
DX: E04.1 Nontoxic single thyroid nodule (principal)
CPT/HCPCS: 76536

== ENCOUNTER 2025-06-18 13:27 | Outpatient (CLI) | payer MEDICARE, SELFPAY ==
--- NOTE | ~2025-06-18 | MM_ITS ---
EXAMINATION: MM screening [facility] BI w [facility] HISTORY: Screening TECHNIQUE: Craniocaudal and mediolateral oblique 3-D tomosynthesis images were obtained and synthetic 2-D images were generated. CAD analysis was submitted and interpreted. COMPARISON: Mammograms from 07/06/2024, 06/04/2024 and 05/29/2023 BREAST PARENCHYMAL COMPOSITION: The breasts are heterogeneously dense, which may obscure small masses. FINDINGS: There is no evidence of suspicious mass, calcification, or architectural distortion to suggest malignancy. There has been no suspicious interval change. IMPRESSION: 1. No mammographic evidence of malignancy. Recommend routine screening mammography in one year. BI-RADS Category 2: Benign finding(s) Reviewed, dictated and finalized at location Q. IMPRESSION: 1. No mammographic evidence of malignancy. Recommend routine screening mammogra phy in one year. BI-RADS Category 2: Benign finding(s)
--- OUTSIDE RECORDS SUMMARY | 2025-06-18 14:18 | XMS_ITS | Encounter Summary ---
Author Organization [facility] Address [address] [place] [address] Care Team Providers Care Steel Roller Name Role Phone Jeffery Lopez DO Primary Care Provider + Encounter Details Date Type Department Care Team (Late Contact Info) Description 09/14/2020 Chart Note [facility] Radiation Therapy [address] [place] [address] [place] [address] [place] [address] Social History Tobacco Use Types Packs/Day Years Used Date Smoking Tobacco: Never Smokeless Tobacco: Never Alcohol Use Standard Drinks/Week Comments Never 0 (1 standard drink = 0.6 oz pur e alcohol) Comments No Sex and Gender Information Value Date Recorded Sex Assigned at Not on file Legal Sex Female 11:04 AM MANAGER MARK[employer] Gender Identity Not on file Sexual Orientation Not on file COVID-19 Exposure Response Date Recorded In the last month, have you been in contact with someone who was confirmed or suspected to have Coronavirus / COVID-19? No / Unsure 09/14/2020 9:34 AM MANAGER MARKET documented as of this encounter Functional Status documented as of this encounter Plan of Treatment Upcoming Encounters Date Type Department Care Team (Late Contact Info) Description 08/30/2025 10:00 AM MANAGER MARKET Office Visit [facility] Oncology and Hematology - [place]inicio [address] [place] [address] Jovany Silverman MD [address] [facility] [address] [place] [address] documented as of this encounter Visit Diagnoses Not on filedocumented in this encounter Care Teams Steel Roller Relationship Specialty Start Date End Date Jeffery Lopez DO [address] [place] [id number] PCP - General Family Practice 10/11/23 documented as of this encounter
--- OUTSIDE RECORDS SUMMARY | 2025-06-18 14:18 | XMS_ITS | Clinical Summary ---
Author Organization [facility] Shireen turner [facility] Address [address] [place] [address] Care Team Providers Care Rubber Cutting Machine Tender Name Role Phone Jeffery Lopez Primary Care Provider + Allergies Active Allergy Reactions Criticality Noted Date Comments Inhaled Anesthetics (Halogen Based) Other (See Comments) 09/14/2020 PATIENT WOKE UP VOMITING,AND violent . Penicillins Rash High 09/14/2020 Medications LORazepam (ATIVAN) 0.5 mg tablet TAKE 1 TABLET BY MOUTH ONCE DAILY NEEDED FOR 30 DAYS 07/17/2020 Active zinc gluconate 50 mg Tablet Take by mouth. Active OXcarbazepine (TRILEPTAL) 300 mg tablet TAKE 1 TABLET BY MOUTH ONCE DAILY AT BEDTIME FOR 30 DAYS 01/21/2021 Active Cholecalciferol , Vitamin D3, 50 mcg (2,000 unit) Capsule Take by mouth. Active donepeziL (ARICEPT) 5 mg tablet Take 5 mg by mouth daily at bedtime. 09/18/2023 Active amLODIPine (NORVASC) 10 mg tablet Take 1 Tablet by mouth daily. 06/28/2024 Active atorvastatin (LIPITOR) 20 mg tablet Take 20 mg by mouth. 04/20/2024 Active anastrozole (ARIMIDEX) 1 mg tabletIndicatio ns:Malignant neoplasm of upper-inner quadrant of left breast in female, estrogen receptor positive (CMS/HCC) Take 1 Tablet (1 mg) by mouth daily. 90 Tablet 2 01/12/2025 Active Active Problems Problem Noted Date Diagnosed Date Osteopenia of multiple sites 06/05/2021 Malignant neoplasm of upper- inner quadrant of left breast in female, estrogen receptor positive 09/14/2020 Encounters Date Type Department Care Team Description 06/08/2025 External Device Data [facility] ABSTRACTION Provider, Abstract 05/25/2025 External Device Data [facility] Provider, Abstract 05/18/2025 External Device Data [facility]CTION Provider, Abstract 04/21/2025 External Device Data [facility]STRACTION Provider, Abstract 04/20/2025 External Device Data [facility]STRACTION Provider, Abstract 03/24/2025 External Device Data [facility] ABSTRACTION Provider, Abstract from Last 3 Months Family History Medical History Relation Name Comments Diabetes Father Heart Disease Father Cancer Mother Relation Name Status Comments Father Mother Social History Tobacco Use Types Packs/Day Years Used Date Smoking Tobacco: Never Smokeless Tobacco: Never Tobacco Cessation:Counseling Given: Not Answered Alcohol Use Standard Drinks/Week Comments Never 0 (1 standard drink = 0.6 oz pur e alcohol) Comments No Sex and Gender Information Value Date Recorded Sex Assigned at Not on file Legal Sex Female 11:04 AM [employer] Gender Identity Not on file Sexual Orientation Not on file Last Filed Vital Signs Vital Sign Reading Time Taken Comments Blood Pressure 137/81 01/12/2025 1:27 PM CDT Pulse 104 01/12/2025 1:27 PM CDT Temperature 36.8 C (98.3 F) 01/12/2025 1:27 PM CDT Respiratory Rate 15 01/12/2025 1:27 PM CDT Oxygen Saturation 98% 01/12/2025 1:27 PM CDT Inhaled Oxygen Concentration - - Weight 50.3 kg (110 lb 12.8 oz) 01/12/2025 1:27 PM CDT Height 162.6 cm (5' 4) 05/30/2022 2:16 PM CDT Body Mass Index 19.02 05/30/2022 2:16 PM CDT Plan of Treatment Upcoming Encounters Date Type Department Care Team (Late st Contact Info) Description 08/30/2025 10:00 AM [employer] Office Visit [facility] Oncology and Hematology - [place] [address] [place] [address] Jovany Silverman MD [address] [place] [address] Health Maintenance Due Date Last Done Comments Traditional Medicare (ACO) A nnual Wellness Visit 1969 COLORECTAL SCREENING 1995 Colorectal Cancer Screening 1995 FIT-DNA Q 3 years 1995 FIT/FOBT Q 1 year 1995 Flex Sig/CT Colonography Q 5 years 1995 ZOSTER VACCINE (1 of 2) 2000 DTAP/TDAP/TD VACCINES (2 - T d or Tdap) 03/05/2024 03/05/2014 RSV VACCINE (60+ or ) (1 - 1-dose 75+ series) 2025 INFLUENZA VACCINE (#1) 2025 10/05/2024, 2022 COVID-19 Vaccine (5 - 2024-2 6 season) 2025 07/26/2022, 08/03/2021, 12/17/2020, Additional history exists OSTEOPOROSIS SCREENING 06/07/2028 , 06/01/2021, 06/01/2021, Additional history exists PNEUMOCOCCAL VACCINE 50+ YEARS Completed 05/28/2024 Procedures Procedure Name Priority Date/Time Associated Diagnosis Comments XR DEXA BONE DENSITY AXIAL 1 OR MORE SITES Routine 06/01/2021 Osteoporosis, unspecified osteoporosis type, unspecified pathological fracture presence from Last 3 Months or Most Recently Relevant to Health Maintenance Results * XR DEXA BONE DENSITY AXIAL 1 OR MORE SITES (06/01/2021) Anatomical Region Laterality Modality Other Jovany Silverman MD DIAGNOSTIC IMAGING ORDERABLES F inal Result from Last 3 Months or Most Recently Relevant to Health Maintenance [place] [address] MEDICARE PART A AND B [facility] SUPP Care Teams Rub[employer] Cutting Machine Tender Relationship Specialty Start Date End Date Jeffery Lopez DO [address] [place] [address] [phone] PCP - General Family Practice 10/11/23
--- OUTSIDE RECORDS SUMMARY | 2025-06-18 14:18 | XMS_ITS | Patient Health Record ---
Author Organization [facility] [employer] Address [address] [place] [address] Care Team Providers Care Last Trimmer Name Role Phone Jeffery Lopez DO Primary Care Provider Wesley Lim Unavailable [phone] Selene Ortiz Unavailable [phone] Allergies Allergen (clinical drug ingredient) Drug/Non Drug Allergy documented on EMR Reaction Allergy Type Onset Date Status Substance with penicillin structure and antibacterial mechanism of action (substance) Penicillins Unknown Drug Allergy 01/29/2024 Active Reason For Referral No Information Medications Medication SIG (Take, Route, Frequency, Duration) Notes Start Date End Date Status Zinc 50 mg Tablet Oral 01/29/2024 A ctive LORazepam 0.5 MG Tablet 1 tablet Oral Once a day; Duration: 30 days As needed 04/19/2025 Active OXcarbazepine 300 MG Tablet 0.5 Oral Twice a day; Duration: 90 days Active Propranolol HCl 60 MG Tablet 0.5 tablet Oral Twice a day; Duration: 30 days 01/29/2024 Not-Taking Anastrozole 1 MG Tablet Oral 01/29/2024 Active OXcarbazepine 300 MG Tablet 0.5 Oral Twice a day; Duration: 90 days Active Atorvastatin Calcium 20 MG Tablet Oral 01/29/2024 Active Immunizations Vaccine Route Administration Date Status Comme nts Influenza virus vaccine, quadrivalent (IIV4), split virus, 0.25 mL dosage Unknown 06/07/2018 Administered Influenza, high dose seasonal Unknown 07/28/2017 Admini stered Influenza, seasonal, injecta ble, preservative free, 3 yrs and above Unknown 07/21/2014 Administered Influenza, seasonal, injecta ble, preservative free, 3 yrs and above Unknown 08/23/2015 Administered Moderna Covid-19 Vaccine 1st dose Unknown 11/19/2020 Ad ministered Moderna Covid-19 Vaccine 1st dose Unknown 12/17/2020 Ad ministered Moderna Covid-19 Vaccine 1st dose Unknown 08/03/2021 Ad ministered Tdap Unknown 03/05/2014 Administered Social History Tobacco Use: Social History Observation Description Date Details (start date - stop date) Never Smoker NA - NA Sex Assigned At : Social History Observation Description Sex Assigned At Female Social History Tobacco Use: Social Info Question Answer Notes Tobacco Control (Standard) Tobacco use: Nonsmoker Additional Details Category Social Info Options Details Migrated Social History Migrated Social History Alcohol Intake: None 08/06/2018,Tobacco Years: Never smoker 08/06/2018,Smoking Status: 0 07/30/2023 Problems Problem Type SNOMED Code ICD Code Onset Dates Problem Status W/U Status Risk Notes Problem Hyperparathyroidism (39334368) Hyperparathyro idism, unspecified (E21.3) 01/29/20 Active confirmed Problem Bipolar II disorder (34067347) Bipolar II disorder (F31.81) 01/29/20 Active confirmed Problem Generalized anxiety disorder (42980325) Generalized anxiety disorder (F41.1) 01/29/20 Active confirmed Vital Signs Heart Rate 97 /min 04/19/2025 Height-cm 162.56 cm 04/19/2025 Blood pressure diastolic 90 mm Hg 04/19/2025 Weight-kg 52.16 kg 04/19/2025 Height 64.00 in 04/19/2025 Blood pressure systolic 150 mm Hg 04/19/2025 Weight 115 lbs 04/19/2025 BMI 19.74 kg/m2 04/19/2025 Encounters Encounter Location Date Provider Diagnosis [facility] [employer] [facility] [address] [address] 07/02/2024 Selene Ortiz Bipolar II disorder F31.81 and Generalized anxiety disorder F41.1 [facility] [employer] [facility] [address] [facility] [address] [place] [address] 07/28/2024 Wesley Pritchard Generalized anxiety disorder F41.1 ; Bipolar II disorder F31.81 and Hyperparathyroidism, unspecified E21.3 [facility] [employer] [facility] [address] [facility] [address] [place] [address] 08/28/2024 Selene Angel Bipolar II disorder F31.81 and Generalized anxiety disorder F41.1 [facility] [address] [place] [address] 09/25/2024 Selene Angel Bipolar II disorder F31.81 and Generalized anxiety disorder F41.1 [place] [address] [place] [address] 10/26/2024 Wesley Pritchard Generalized anxiety disorder F41.1 ; Bipolar II disorder F31.81 and Hyperparathyroidism, unspecified E21.3 [facility] [address] [place] [address] 10/30/2024 Selene Angel Bipolar II disorder F31.81 and Generalized anxiety disorder F41.1 [place] [address] [place] [address] 11/27/2024 Selene Angel Bipolar II disorder F31.81 and Generalized anxiety disorder F41.1 [place] [address] [place] [address] 12/14/2024 Wesley Pritchard Encounter for screen ing for cardiovascular disorders Z13.6 ; Dietary counseling and surveillance Z71.3 ; Encounter for screening for depression Z13.31 ; Generalized anxiety disorder F41.1 ; Bipolar II disorder F31.81 and Hyperparathyroidism, unspecified E21.3 [facility] [address] [place] [address] 12/25/2024 Selene Angel Generalized anxiety disorder F41.1 and Bipolar II disorder F31.81 [facility] [address] [place] [address] 01/18/2025 Wesley Pritchard Bipolar II disorder F31.81 ; Generalized anxiety disorder F41.1 ; Encounter for screening for cardiovascular disorders Z13.6 ; Dietary counseling and surveillance Z71.3 ; Encounter for screening for depression Z13.31 and Hyperparathyroidism, unspecified E21.3 [facility], [facility] [address] [place] [address] 01/29/2025 Selene Angel Generalized anxiety disorder F41.1 and Bipolar II disorder F31.81 [place] [address] [place] [address] 03/10/2025 Selene Ortiz Generalized anxiety disorder F41.1 ; Bipolar II disorder F31.81 and Encounter for screening for depression Z13.31 [facility] [employer] [address] [place] [address] 04/19/2025 Wesley Pritchard Bipolar II disorder F31.81 ; Generalized anxiety disorder F41.1 and Hyperparathyroidism, unspecified E21.3 Assessments Encounter Date Diagnosis (ICD Code) Assessment Notes Treatment Notes Treatment Clinical Notes Section Notes 07/02/2024 Bipolar II disorder (ICD-10 - F31.81) 07/28/2024 Generalized anxiety disorder (ICD-10 - F41.1) 1. Syncope: - Patient experienced a single episode of syncope, leading to hospitalization and cardiac evaluation. - Currently wearing a 30-day heart monitor and scheduled for a stress test with a home care and home health aides teacher. Plan: - Discontinue propranolol due to potential for lowering heart rate excessively. - Patient switched to amlodipine, with dose doubled by primary care physician. - Continue monitoring for further episodes of syncope. - Follow up with home care and home health aides teacher as scheduled. 2. Hypertension: - Patient reports high blood pressure and elevated heart rate (90-100 bpm). - Switched from propranolol to amlodipine for blood pressure management. Plan: - Continue current dose of amlodipine (10 mg) and monitor blood pressure regularly. - Encourage healthy lifestyle: balanced diet, regular exercise, avoid smoking and excessive alcohol. 3. Mood stability: - Patient reports stable mood with no recent episodes of depression or pete. - Taking oxcarbazepine (half in the morning, one in the evening) for mood stabilization. Plan: - Continue current oxcarbazepine regimen and monitor mood stability. 5. Sleep: - Patient reports good sleep quality. - Takes oxcarbazepine and blood pressure medication at night. - Occasionally takes small dose of lorazepam for sleep as needed. Plan: - Continue current sleep management strategies. - Monitor for any changes in sleep quality. Follow-up: - Schedule follow-up appointment in approximately three months to reassess overall health and address concerns. 08/28/2024 Bipolar II disorder (ICD-10 - F31.81) 09/25/2024 Bipolar II disorder (ICD-10 - F31.81) 10/30/2024 Bipolar II disorder (ICD-10 - F31.81) 11/27/2024 Bipolar II disorder (ICD-10 - F31.81) 12/14/2024 Encounter for screening for cardiovascular disorders (ICD-10 - Z13.6) 12/25/2024 Generalized anxiety disorder (ICD-10 - F41.1) 01/18/2025 Bipolar II disorder (ICD-10 - F31.81) Imported from [employer]: The patient has had multiple encounters with healthcare providers from March 2024 to January 2025. The patient has been primarily seen by Dr. Jeffery Lopez at [facility] and Dr. Jovany Silverman at [facility]. The patient has been diagnosed with several conditions including Hyperlipidemia, Hyperparathyroid ism, Primary Hypertension, and Syncope. 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 This was first noted during an office visit with Dr. Silverman on July 13, 2024. The patient has also had multiple scans and external device data reviews at both [facility] and [facility]. The patient was hospitalized on September 09, 2024, and December 17, 2024, for chest pain of unknown etiology and other existing conditions. 01/29/2025 Generalized anxiety disorder (ICD-10 - F41.1) 03/10/2025 Bipolar II disorder (ICD-10 - F31.81) 03/10/2025 Generalized anxiety disorder (ICD-10 - F41.1) 04/19/2025 Bipolar II disorder (ICD-10 - F31.81) Imported from [employer]: The patient has had multiple encounters with healthcare providers from March 2024 to January 2025. The patient has been primarily seen by Dr. Jeffery Lopez at [facility] and Dr. Jovany Silverman at [facility]. The patient has been diagnosed with several conditions including Hyperlipidemia, Hyperparathyroid ism, Primary Hypertension, and Syncope. 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 This was first noted during an office visit with Dr. Silverman on July 13, 2024. The patient has also had multiple scans and external device data reviews at both [facility] and [facility]. The patient was hospitalized on September 09, 2024, and December 17, 2024, for chest pain of unknown etiology and other existing conditions. 10/26/2024 Generalized anxiety disorder (ICD-10 - F41.1) 10/26/2024 Bipolar II disorder (ICD-10 - F31.81) 04/19/2025 Generalized anxiety disorder (ICD-10 - F41.1) Imported from [employer]: The patient has had multiple encounters with healthcare providers from March 2024 to January 2025. The patient has been primarily seen by Dr. Jeffery Lopez at [facility] and Dr. Jovany Silverman at [facility]. The patient has been diagnosed with several conditions including Hyperlipidemia, Hyperparathyroid ism, Primary Hypertension, and Syncope. 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 This was first noted during an office visit with Dr. Silverman on July 13, 2024. The patient has also had multiple scans and external device data reviews at both [facility] and [facility]. The patient was hospitalized on September 09, 2024, and December 17, 2024, for chest pain of unknown etiology and other existing conditions. 12/25/2024 Bipolar II disorder (ICD-10 - F31.81) 01/29/2025 Bipolar II disorder (ICD-10 - F31.81) 03/10/2025 Encounter for screening for depression (ICD-10 - Z13.31) 01/18/2025 Generalized anxiety disorder (ICD-10 - F41.1) Imported from [employer]: The patient has had multiple encounters with healthcare providers from March 2024 to January 2025. The patient has been primarily seen by Dr. Jeffery Lopez at [facility] and Dr. Jovany Silverman at [facility]. The patient has been diagnosed with several conditions including Hyperlipidemia, Hyperparathyroid ism, Primary Hypertension, and Syncope. 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 This was first noted during an office visit with Dr. Silverman on July 13, 2024. The patient has also had multiple scans and external device data reviews at both [facility] and [facility]. The patient was hospitalized on September 09, 2024, and December 17, 2024, for chest pain of unknown etiology and other existing conditions. 12/14/2024 Dietary counseling and surveillance (ICD-10 - Z71.3) 11/27/2024 Generalized anxiety disorder (ICD-10 - F41.1) 10/30/2024 Generalized anxiety disorder (ICD-10 - F41.1) 09/25/2024 Generalized anxiety disorder (ICD-10 - F41.1) 08/28/2024 Generalized anxiety disorder (ICD-10 - F41.1) 07/28/2024 Bipolar II disorder (ICD-10 - F31.81) 1. Syncope: - Patient experienced a single episode of syncope, leading to hospitalization and cardiac evaluation. - Currently wearing a 30-day heart monitor and scheduled for a stress test with a home care and home health aides teacher. Plan: - Discontinue propranolol due to potential for lowering heart rate excessively. - Patient switched to amlodipine, with dose doubled by primary care physician. - Continue monitoring for further episodes of syncope. - Follow up with home care and home health aides teacher as scheduled. 2. Hypertension: - Patient reports high blood pressure and elevated heart rate (90-100 bpm). - Switched from propranolol to amlodipine for blood pressure management. Plan: - Continue current dose of amlodipine (10 mg) and monitor blood pressure regularly. - Encourage healthy lifestyle: balanced diet, regular exercise, avoid smoking and excessive alcohol. 3. Mood stability: - Patient reports stable mood with no recent episodes of depression or pete. - Taking oxcarbazepine (half in the morning, one in the evening) for mood stabilization. Plan: - Continue current oxcarbazepine regimen and monitor mood stability. 5. Sleep: - Patient reports good sleep quality. - Takes oxcarbazepine and blood pressure medication at night. - Occasionally takes small dose of lorazepam for sleep as needed. Plan: - Continue current sleep management strategies. - Monitor for any changes in sleep quality. Follow-up: - Schedule follow-up appointment in approximately three months to reassess overall health and address concerns. 07/02/2024 Generalized anxiety disorder (ICD-10 - F41.1) 07/28/2024 Hyperparathyroid ism, unspecified (ICD-10 - E21.3) managed by pcp 1. Syncope: - Patient experienced a single episode of syncope, leading to hospitalization and cardiac evaluation. - Currently wearing a 30-day heart monitor and scheduled for a stress test with a home care and home health aides teacher. Plan: - Discontinue propranolol due to potential for lowering heart rate excessively. - Patient switched to amlodipine, with dose doubled by primary care physician. - Continue monitoring for further episodes of syncope. - Follow up with home care and home health aides teacher as scheduled. 2. Hypertension: - Patient reports high blood pressure and elevated heart rate (90-100 bpm). - Switched from propranolol to amlodipine for blood pressure management. Plan: - Continue current dose of amlodipine (10 mg) and monitor blood pressure regularly. - Encourage healthy lifestyle: balanced diet, regular exercise, avoid smoking and excessive alcohol. 3. Mood stability: - Patient reports stable mood with no recent episodes of depression or pete. - Taking oxcarbazepine (half in the morning, one in the evening) for mood stabilization. Plan: - Continue current oxcarbazepine regimen and monitor mood stability. 5. Sleep: - Patient reports good sleep quality. - Takes oxcarbazepine and blood pressure medication at night. - Occasionally takes small dose of lorazepam for sleep as needed. Plan: - Continue current sleep management strategies. - Monitor for any changes in sleep quality. Follow-up: - Schedule follow-up appointment in approximately three months to reassess overall health and address concerns. 12/14/2024 Encounter for screening for depression (ICD-10 - Z13.31) 01/18/2025 Encounter for screening for cardiovascular disorders (ICD-10 - Z13.6) Imported from [employer]: The patient has had multiple encounters with healthcare providers from March 2024 to January 2025. The patient has been primarily seen by Dr. Jeffery Lopez at [facility] and Dr. Jovany Silverman at [facility]. The patient has been diagnosed with several conditions including Hyperlipidemia, Hyperparathyroid ism, Primary Hypertension, and Syncope. 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 This was first noted during an office visit with Dr. Silverman on July 13, 2024. The patient has also had multiple scans and external device data reviews at both [facility] and [facility]. The patient was hospitalized on September 09, 2024, and December 17, 2024, for chest pain of unknown etiology and other existing conditions. 04/19/2025 Hyperparathyroid ism, unspecified (ICD-10 - E21.3) managed by pcp Imported from [employer]: The patient has had multiple encounters with healthcare providers from March 2024 to January 2025. The patient has been primarily seen by Dr. Jeffery Lopez at [facility] and Dr. Jovany Silverman at [facility]. The patient has been diagnosed with several conditions including Hyperlipidemia, Hyperparathyroid ism, Primary Hypertension, and Syncope. 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 This was first noted during an office visit with Dr. Silverman on July 13, 2024. The patient has also had multiple scans and external device data reviews at both [facility] and [facility]. The patient was hospitalized on September 09, 2024, and December 17, 2024, for chest pain of unknown etiology and other existing conditions. 10/26/2024 Hyperparathyroid ism, unspecified (ICD-10 - E21.3) managed by pcp 01/18/2025 Dietary counseling and surveillance (ICD-10 - Z71.3) Imported from [employer]: The patient has had multiple encounters with healthcare providers from March 2024 to January 2025. The patient has been primarily seen by Dr. Jeffery Lopez at [facility] and Dr. Jovany Silverman at [facility]. The patient has been diagnosed with several conditions including Hyperlipidemia, Hyperparathyroid ism, Primary Hypertension, and Syncope. 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 This was first noted during an office visit with Dr. Silverman on July 13, 2024. The patient has also had multiple scans and external device data reviews at both [facility] and [facility]. The patient was hospitalized on September 09, 2024, and December 17, 2024, for chest pain of unknown etiology and other existing conditions. 12/14/2024 Generalized anxiety disorder (ICD-10 - F41.1) 12/14/2024 Bipolar II disorder (ICD-10 - F31.81) 01/18/2025 Encounter for screening for depression (ICD-10 - Z13.31) Imported from [employer]: The patient has had multiple encounters with healthcare providers from March 2024 to January 2025. The patient has been primarily seen by Dr. Jeffery Lopez at [facility] and Dr. Jovany Silverman at [facility]. The patient has been diagnosed with several conditions including Hyperlipidemia, Hyperparathyroid ism, Primary Hypertension, and Syncope. 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 This was first noted during an office visit with Dr. Silverman on July 13, 2024. The patient has also had multiple scans and external device data reviews at both [facility] and [facility]. The patient was hospitalized on September 09, 2024, and December 17, 2024, for chest pain of unknown etiology and other existing conditions. 01/18/2025 Hyperparathyroid ism, unspecified (ICD-10 - E21.3) managed by pcp Im[employer] from [employer]: The patient has had multiple encounters with healthcare providers from March 2024 to January 2025. The patient has been primarily seen by Dr. Jeffery Lopez at [facility] and Dr. Jovany Silverman at [facility]. The patient has been diagnosed with several conditions including Hyperlipidemia, Hyperparathyroid ism, Primary Hypertension, and Syncope. 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 This was first noted during an office visit with Dr. Silverman on July 13, 2024. The patient has also had multiple scans and external device data reviews at both [facility] and [facility]. The patient was hospitalized on September 09, 2024, and December 17, 2024, for chest pain of unknown etiology and other existing conditions. 12/14/2024 Hyperparathyroid ism, unspecified (ICD-10 - E21.3) managed by pcp 07/02/2024 Other Client has not been seen by this therapist since May 2023. She reports she passed out about 4 weeks ago and has been on a 30 day heart monitor to see if her heart is what caused this. She states her feels she has been overly talkative lately and suggested she come back to therapy. She states that all 3 of her children have bipolar disorder. She discussed recent family stresses. Therapist actively listened to client and utilized a cognitive behavioral intervention to help client explore strategies to minimize her concerns about family members. 08/28/2024 Other Client reports she and will be spending Thanksgiving with her oldest daughter and family. Other daughter and are doing marriage counseling to see if the marriage can be salvaged. Client's had knee replacement surgery recently and is recovering well from it. Client is to have a stress test in early September because she has been passing out occasionally. Client reports she has been doing well over all. Therapist actively listened to client and provided a supportive intervention by helping client maintain her current level of functioning through the showing of acceptance. 09/25/2024 Other Client reports her is recovering well from his knee replacement surgery in June. She reports her 1 daughter and are going to marriage counseling and it appears to be helping to improve their marriage. Client's stress test went well. Cient and will be going to their oldest daughter's home for [place] (they live very close). Therapist actively listened to client and provided a supportive intervention by helping client maintain her current level of functioning through the showing of acceptance. 10/26/2024 Other 1. Mood stability - Patient reports no significant depressive or manic symptoms. Mood appears stable on current medication regimen. - Plan: Continue oxcarbazepine 300 mg, [id number]-half tablets daily. Monitor mood stability during follow-up visits. 2. Anxiety - Patient reports minimal use of lorazepam, indicating well-controlle d anxiety. - Plan: No need to refill lorazepam prescription at this time. Patient has a full bottle and can use as needed. Continue monitoring anxiety during follow-up visits. 3. Sleep - Patient reports good sleep quality without the need for additional medication. - Plan: Continue current sleep routine. Reassess sleep quality during follow-up visits. 4. Pharmacy change - Patient has switched from [facility] pharmacy to [facility] in [place]. - Plan: Update pharmacy information in the patient's record and resend oxcarbazepine prescription to the correct pharmacy. Confirm with the patient that the prescription has been received at the new pharmacy. 5. Follow-up appointments - Plan: Schedule a follow-up visit in 3 months to monitor mood stability, anxiety, sleep, and prediabetes status. Adjust treatment plan as needed based on the patient's progress and any new concerns. 10/30/2024 Other Client reports her mother has been for about 5 years. Client states for about the last month she has been feeling guilty that she didn't visit her mother more often in her last months. She was tearful off and on during the therapy session. Therapist and client explored possible triggers for this recent wave of thoughts. Therapist actively listened to client and utilized a cognitive behavioral intervention to help client explore strategies to cope with these thoughts when they occur (write letters to her mom describing what she is feeling, when done, burn or shred the letter). 11/27/2024 Other Cliente reports her mood and life and been going smoothly. She states that her grandson that attends [employer] has been stopping by their house after class and client is enjoying his visits. Therapist actively listened to client and provided a supportive intervention by helping client maintain her current level of functioning through the showing of acceptance. 12/14/2024 Other 1. Recurrent Syncope: - Patient reports two episodes of syncope in the past 6 months, most recent 4 days ago. - Episodes characterized by loss of consciousness, snoring, and difficulty arousing. - Nausea and vomiting upon regaining consciousness. - Previous cardiac workup unremarkable. - Family history significant for cardiac issues. - Occasional chest pressure relieved by lorazepam. Plan: - Upcoming appointment with primary care physician, Dr. Pastrana, in 3 days. - Possible cardiology referral to be determined by primary care physician. - Patient to inform clinician of primary care physician's assessment and recommendation s. - Follow up with psychiatry on January 18, 2025. - Patient advised to go to the hospital if another syncopal episode occurs before the primary care appointment. 2. Medication Management - Oxcarbazepine: - Patient self-reduced oxcarbazepine dosage due to concerns about syncope. - Current regimen is half dose in the morning and quarter dose in the evening. - Mood instability for two days following dose reduction, improved with slight increase. Plan: - Consider adjusting oxcarbazepine dosage to half dose in the morning and half dose in the evening, pending primary care physician's evaluation. - Monitor for mood changes and side effects. - Educate patient on the importance of not abruptly changing medication dosages without consulting healthcare providers. 3. Anxiety: - Patient reports occasional chest pressure relieved by lorazepam. - Anxiety may be exacerbated by recent syncopal episodes and concerns about potential cardiac issues. Plan: - Continue lorazepam as needed for anxiety symptoms. - Reassess anxiety symptoms and lorazepam use at next appointment. 12/25/2024 Other client reports she had another episode of passing out. She has seen the PMHNP to see if her psychiatric meds are a contributing factor, has seen her primary doctor, and is scheduled to see a neurologist to investigate what may be causing her to pass out. Client then focused on her adult children and grandchildren and how supportive they have been . Therapist actively listened to client and asked questions for clarification. The therapist then provided a supportive intervention by helping client maintain her current level of functioning through the showing of acceptance. 01/18/2025 Other Brenda Jacques, a female patient with a history of bipolar disorder and anxiety, presents for follow-up with reports of fluctuating symptoms, including episodes of passing out and concerns about medication management. Bipolar Disorder Assessment: Patient reports mood stability with current medication regimen. She is sleeping well, which suggests adequate mood control. Recent adjustment to oxcarbazepine dosage, reducing it to half of a 300 mg tablet twice daily, appears to be well-tolerated without reported adverse effects on mood. Plan: - Continue oxcarbazepine at current dose of 150 mg PO BID - Refill oxcarbazepine prescription - Follow up in 3 months Anxiety Assessment: Patient's anxiety appears to be managed with current medication regimen. No specific anxiety-relate d complaints were reported during this visit. Plan: - Continue lorazepam at current dose (dose not specified in transcript) - Refill lorazepam prescription Syncope Assessment: Patient reports two episodes of passing out since last visit. Cardiac etiology less likely given normal results from 30-day heart monitor and stress test. Neurological evaluation pending with appointment scheduled for March 11. Plan: - Await neurology consultation on March 11 for further evaluation - Monitor for any additional syncope episodes Medication Management Assessment: Patient reports increased use of lorazepam recently. Current supply nearly exhausted, with last refill dating from July. Blood pressure medication has been changed, with propranolol discontinued and a new medication initiated at double the previous dose by PCP. Plan: - Assess for lorazepam useage at next visit - Continue current blood pressure medication as prescribed by Dr. Montana - Patient to take blood pressure medication at night with oxcarbazepine the note is transcribed using speech recognition software. It is a reflection of a visit with the patient. It might have some inaccuracy, including medication names and transcribing errors, though efforts have been made to correct them. Imported from Highlights: The patient has had multiple encounters with healthcare providers from March 2024 to January 2025. The patient has been primarily seen by Dr. Jeffery Lopez at [facility] and Dr. Jovany Silverman at [facility]. The patient has been diagnosed with several conditions including Hyperlipidemia, Hyperparathyroid ism, Primary Hypertension, and Syncope. 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 This was first noted during an office visit with Dr. Silverman on July 13, 2024. The patient has also had multiple scans and external device data reviews at both [facility] and [facility]. The patient was hospitalized on September 09, 2024, and December 17, 2024, for chest pain of unknown etiology and other existing conditions. 01/29/2025 Other Client reports her is going through the process of getting medical clearances to have back surgery. Client reports she has concerns for her daughter that is going through a divorce, but does not let the situation get her down. Therapist actively listened to client and asked questions for clarification. The therapist then provided a supportive intervention by helping client maintain her current level of functioning through the showing of acceptance. 03/10/2025 Other Client continues to be concerned/worr ied about her daughter who is going through a divorce. She also focused on her grandchildren (how good they are and how much she loves them. She reports states her prompted her to come in for a therapy session as he said she seems to be a bit chatty. She has an appointment with a neurologist tomorrow. Therapist actively listened to client and utilized a cognitive behavioral intervention to help client to explore strategies to try to slow her speech (pressured). PHQ=3 minimal 04/19/2025 Other Brenda Jacques, a 75-year-old female with a history of bipolar disorder, presents for follow-up with minimal current symptoms and medication management. Bipolar Disorder Assessment: Patient reports stable mood with no current depressive symptoms. She mentions taking a little more marazipan sometimes but still has some left. Patient sleeps well, which she attributes partly to oxcarbazepine. Her daughter, who also has bipolar disorder, is doing well, which may contribute to the patient's stability. Plan: - Continue oxcarbazepine 150 mg PO BID (half of 300 mg tablet twice daily) - Refill lorazepam - Follow up in 3 months Anxiety Assessment: Patient reports maybe a little bit of anxiety. She mentions using more of her as-needed medication (likely a benzodiazepine) recently, suggesting some increase in anxiety symptoms. Plan: - Continue current medication regimen - Monitor anxiety symptoms History of Syncope Assessment: Patient reports improvement in dizziness and syncope after reduction of oxcarbazepine dose and discontinuation of doxycycline. Neurology evaluation concluded that further syncopal episodes are unlikely but advised follow-up if they recur. Plan: - Continue current reduced dose of oxcarbazepine - Patient to follow up with neurologist if syncope recurs the note is transcribed using speech recognition software. It is a reflection of a visit with the patient. It might have some inaccuracy, including medication names and transcribing errors, though efforts have been made to correct them. Imported from Highlights: The patient has had multiple encounters with healthcare providers from March 2024 to January 2025. The patient has been primarily seen by Dr. Jeffery Lopez at [facility] and Dr. Jovany Silverman at [facility]. The patient has been diagnosed with several conditions including Hyperlipidemia, Hyperparathyroid ism, Primary Hypertension, and Syncope. 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 This was first noted during an office visit with Dr. Silverman on July 13, 2024. The patient has also had multiple scans and external device data reviews at both [facility] and [facility]. The patient was hospitalized on September 09, 2024, and December 17, 2024, for chest pain of unknown etiology and other existing conditions. Plan Of Treatment Next Appt Details Provider Name:Wesley thakur, 07/19/2025 02:15:00 PM, [address], [facility] [address], [place], [address], Insurance Providers Payer Name Payer Address Payer Phone Subscriber Number Group Number Insured Name Patient Relationship to Insured Coverage Start Date Coverage End Date Medicare-I l Medicare [address] [place] [phone] [id number] BRENDA JACUQES Self - patient is the insured [facility] [employer] [address] [place] [address] [id number] BRENDA JACQUES Self - patient is the insured Medical (General) History Medical History History ICD Code Problems: Bipolar II disorder Generalized anxiety disorder Hyperparathyroidism Malignant neoplasm of upper-inner quadra nt of female breast , Surgical History Surgery Date(Month/Year) Removal of gallbladder (77531) Breast surgery (67062) 08/29/2020
== END 2025-06-18 13:28 | disposition home or self-care (01) ==
LOC: ANHFOHIMG 13:29
PROVIDERS: PCP Student in an Organized Health Care Education/Training Program; Visit Provider Internal Medicine Hematology & Oncology
DX: Z12.31 Encounter for screening mammogram for malignant neoplasm of breast (principal)
CPT/HCPCS: 77063; 77067

== ENCOUNTER 2025-08-02 10:58 | Outpatient (CLI) | payer MEDICARE, SELFPAY ==
--- NOTE | ~2025-08-02 | DEXA_ITS ---
Bone Density Report Name: BRENDA JACQUES Age: 75 Sex: Female Ethnicity: White Date of : 1950 Indication: osteopenia; height loss; cancer; Referring Provider: MIGUEL A CONDON Study: Bone densitometry was performed. Exam Date: August 02, 2025 Accession number: [id number] Bone Density: Region BMD T-score Z-score Classification AP Spine(L1-L4) 1.102 0.5 2.9 Normal Femoral Neck (Left) 0.595 -2.3 -0.2 Osteopenia Total Hip (Left) 0.838 -0.9 0.9 Normal Femoral Neck (Right) 0.635 -1.9 0.2 Osteopenia Total Hip (Right) 0.755 -1.5 0.3 Osteopenia Total Hip Mean 0.796 -1.2 0.6 Osteopenia World Health Organization criteria for BMD impression classify patients as: Normal (T-score at or above -1.0), Osteopenia (T-score between -1.0 and -2.5), or Osteoporosis (T-score at or below -2.5). 10-year Fracture Risk(1): Major Osteoporotic Fracture 13% Hip Fracture 3.9% Reported Risk Factors: [place] (), Neck BMD=0.595, BMI=20.0 (1) FRAX(R) Version 3.08. Fracture probability calculated for an untreated patient. Fracture probability may be lower if the patient has received treatment. Previous Exams: Region Exam Age BMD T-score BMD Change BMD Change Date g/cm2 vs Baseline vs Previous Total Hip(Left) 08/02/2025 75 0.838 -0.9 0.012 (1.5%) 0.012 (1.5%) 06/07/2023 73 0.826 -1.0 Total Hip(Right) 08/02/2025 75 0.755 -1.5 -0.019 (-2.4%) -0.019 (-2.4%) 06/07/2023 73 0.774 -1.4 *Denotes significance at 95% confidence level, LSC for Total Hip = 0.027 g/cm2 Clinical Information Provided by Patient: Has used the following medications: Vitamin D Has the following medical conditions: Cancer Patient maximum height was 64.0 Menopause Age: 50 No regular weight bearing exercise Onset of menses at age 13 Number of children 3 Impression: The patient has low bone mass, based on the Left Femoral Neck T-score. The patient has an estimated ten-year risk of hip fracture of 3.9% and an estimated ten-year risk of major fracture of 13%, based on the WHO FRAX algorithm. No significant bone loss was observed. Discussion: BONE DENSITY IS LOW AT ONE OR MORE SKELETAL SITES. THE PATIENT'S BMD AND CLINICAL RISK FACTORS CONTRIBUTE TO THIS PATIENT'S INCREASED RISK OF FRACTURE. This patient's lowest T-score is low at one or more skeletal sites. It meets the World Health Organization's (WHO) criteria for ?low bone mass? (T-score between -1.0 and -2.5). The patient's 10-year risk of hip fracture as calculated by FRAX exceeds the threshold where pharmacological therapy is recommended by the National Osteoporosis Foundation (NOF). However, all treatment decisions require clinical judgment and consideration of individual patient factors, including patient preferences, comorbidities, previous drug use, risk factors not captured in the FRAX model (e.g., frailty, falls, vitamin D deficiency, increased bone turnover, interval significant decline in bone density) and possible under or overestimation of fracture risk by FRAX. The patient should follow a healthful lifestyle (good nutrition with adequate calcium and vitamin D, and appropriate weight-bearing exercise). Follow-Up: Consider a repeat BMD and Vertebral Fracture Assessment (VFA) exam in 2 years or sooner if medically necessary, to reassess this patient's status. Reported by: CROW on 08/02/2025 11:49:00 AM. Reviewed, dictated and finalized at location A.
--- OUTSIDE RECORDS SUMMARY | 2025-08-02 12:34 | XMS_ITS | Encounter Summary ---
Author Organization [facility] Address [address] [place] [address] Care Team Providers Care Partner Integration Planner Name Role Phone Jeffery Lopez DO Primary Care Provider + Encounter Details Date Type Department Care Team (Late Contact Info) Description 09/14/2020 Chart Note [facility] Radiation Therapy [address] [place] [address] [place] [address] [place] [address] Social History Tobacco Use Types Packs/Day Years Used Date Smoking Tobacco: Never Smokeless Tobacco: Never Alcohol Use Standard Drinks/Week Comments Never 0 (1 standard drink = 0.6 oz pur e alcohol) Comments No Sex and Gender Information Value Date Recorded Sex Assigned at Not on file Legal Sex Female 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 No / Unsure 09/14/2020 9:34 AM ACTIVITY LEADER documented as of this encounter Functional Status documented as of this encounter Plan of Treatment Upcoming Encounters Date Type Department Care Team (Late Contact Info) Description 08/30/2025 10:00 AM ACTIVITY LEADER Office Visit [facility] Oncology and Hematology - [place] [address] [place] [address] Jovany Silverman MD [address] [facility] [address] [place] [address] documented as of this encounter Visit Diagnoses Not on filedocumented in this encounter Care Teams Partner Integration Planner Relationship Specialty Start Date End Date Jeffery Lopez DO [address] [place] [phone] PCP - General Family Practice 10/11/23 documented as of this encounter
--- OUTSIDE RECORDS SUMMARY | 2025-08-02 12:35 | XMS_ITS | Clinical Summary ---
Author Organization [facility] Shireen turner [facility] Address [address] [place] [address] Care Team Providers Care Family Law Mediator Name Role Phone Jeffery Lopez Primary Care [...] Encounters Date Type Department Care Team Description 07/27/2025 Orders Only [facility] Oncology and Hematology [address] [place] [address] Jovany Silverman MD Osteopenia of multiple sites (Primary Dx) 06/22/2025 External Device Data [facility] ABSTRACTION Provider, Abstract 06/08/2025 External Device Data [facility] ABSTRACTION Provider, [...] on file Legal Sex Female 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 Gender Identity Not on file Sexual Orientation [...] st Contact Info) Description 08/30/2025 10:00 AM REGENERATION OPERATOR Office Visit [facility] Oncology and Hematology [address] [place] [address] Jovany Silverman MD [address] [place] [address] Health Maintenance Due Date Last Done Comments COLORECTAL SCREENING 1995 Colorectal Cancer Screening 1995 FIT-DNA Q 3 years 1995 FIT/FOBT Q 1 year 1995 Flex Sig/CT Colonography Q 5 years 1995 ZOSTER VACCINE (1 of 2) 2000 DTAP/TDAP/TD VACCINES (2 - T d or Tdap) 03/05/2024 03/05/2014 RSV VACCINE (60+ or ) (1 - 1-dose 75+ series) 2025 INFLUENZA VACCINE (#1) 2025 10/05/2024, 2022 COVID-19 Vaccine ( - 2024-2 6 season) 2025 07/26/2022, 08/03/2021, [...] Most Recently Relevant to Health Maintenance [place] [address] MEDICARE PART A AND B BCBS SUPP Care Teams Family Law Mediator Relationship Specialty Start Date End Date Jeffery Lopez DO [address] [place] [phone] PCP - General Family Practice 10/11/23
--- OUTSIDE RECORDS SUMMARY | 2025-08-02 12:35 | XMS_ITS | Patient Health Record ---
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 Name Role Phone Jeffery Lopez DO Primary Care Provider Wesley Lim Unavailable [phone] Selene Ortiz Unavailable [phone] Allergies Allergen (clinical drug ingredient) Drug/Non Drug Allergy documented on EMR Reaction Allergy Type Onset Date Status Substance with penicillin structure and antibacterial mechanism of action (substance) Penicillins Unknown Drug Allergy 01/29/2024 Active Reason For Referral No Information Medications Medication SIG (Take, Route, Frequency, Duration) Notes Start Date End Date Status OXcarbazepine 300 MG Tablet 0.5 Oral Twice a day; Duration: 90 days 07/19/2025 01/15/2026 Active LORazepam 0.5 MG Tablet 1 tablet Oral Once a day; Duration: 30 days As needed 07/19/2025 Active OXcarbazepine 300 MG Tablet 0.5 Oral Twice a day; Duration: 90 days Not-Taking Anastrozole 1 MG Tablet Oral 01/29/2024 Active Atorvastatin Calcium 20 MG Tablet Oral 01/29/2024 Active Zinc 50 mg Tablet Oral 01/29/2024 A ctive Propranolol HCl 60 MG Tablet 0.5 tablet Oral Twice a day; Duration: 30 days 01/29/2024 Not-Taking Immunizations Vaccine Route Administration Date Status Comme [...] Status W/U Status Risk Notes Problem Hyperparathyroidism (21280497) Hyperparathyro idism, unspecified (E21.3) 01/29/20 Active confirmed Problem Bipolar II disorder (72914159) Bipolar II disorder (F31.81) 01/29/20 Active confirmed Problem Generalized anxiety disorder (58055939) Generalized anxiety disorder (F41.1) 01/29/20 Active confirmed Vital Signs Heart Rate 90 /min 07/19/2025 Height-cm 162.56 cm 07/19/2025 Blood pressure diastolic 92 mm Hg 07/19/2025 Weight-kg 52.16 kg 07/19/2025 Height 64.00 in 07/19/2025 Blood pressure systolic 138 mm Hg 07/19/2025 Weight 115 lbs 07/19/2025 BMI 19.74 kg/m2 07/19/2025 Encounters Encounter Location Date Provider Diagnosis [facility] [employer] [facility] [address] [facility] [address] [place] [address] 08/28/2024 Selenenico Ortiz Bipolar II disorder F31.81 and Generalized anxiety disorder F41.1 [facility] [employer] [facility] [address] [facility] [address] [place] [address] 09/25/2024 Selene Angel Bipolar II disorder F31.81 and Generalized anxiety disorder F41.1 [facility] [employer] [facility] [address] [facility] [address] [place] [address] 10/26/2024 Wesley Pritchard Generalized anxiety disorder F41.1 ; Bipolar II disorder F31.81 and Hyperparathyroidism, unspecified E21.3 [facility] [place] [facility] [address] [place] [address] 10/30/2024 Selene Angel Bipolar II disorder F31.81 and Generalized anxiety disorder F41.1 [place] [address] [place] [address] 11/27/2024 Selene Angel Bipolar II disorder F31.81 and Generalized anxiety disorder F41.1 [place] [address] [place] [address] 12/14/2024 Wesley Pritchard Encounter for screen ing for cardiovascular disorders Z13.6 ; Dietary counseling and surveillance Z71.3 ; Encounter for screening for depression Z13.31 ; Generalized anxiety disorder F41.1 ; Bipolar II disorder F31.81 and Hyperparathyroidism, unspecified E21.3 [place] [address] [place] [address] 12/25/2024 Selene Angel Generalized anxiety disorder F41.1 and Bipolar II disorder F31.81 [facility] [place] [facility] [address] [place] [address] 01/18/2025 Wesley Pritchard Bipolar II disorder F31.81 ; Generalized anxiety disorder F41.1 ; Encounter for screening for cardiovascular disorders Z13.6 ; Dietary counseling and surveillance Z71.3 ; Encounter for screening for depression Z13.31 and Hyperparathyroidism, unspecified E21.3 [place] [address] [place] [address] 01/29/2025 Selene Angel Generalized anxiety disorder F41.1 and Bipolar II disorder F31.81 [facility] [place] [address] [place] [address] 03/10/2025 Selene Angel Generalized anxiety disorder F41.1 ; Bipolar II disorder F31.81 and Encounter for screening for depression Z13.31 [place] [address] [place] [address] 04/19/2025 Wesley Pritchard Bipolar II disorder F31.81 ; Generalized anxiety disorder F41.1 and Hyperparathyroidism, unspecified E21.3 [facility] [address] [place] [address] 07/19/2025 Wesley Pritchard Bipolar II disorder F31.81 ; Generalized anxiety disorder F41.1 and Hyperparathyroidism, unspecified E21.3 Assessments Encounter Date Diagnosis (ICD Code) Assessment Notes Treatment Notes Treatment Clinical Notes Section Notes 08/28/2024 Bipolar II disorder (ICD-10 - F31.81) 09/25/2024 Bipolar II disorder (ICD-10 - F31.81) 10/26/2024 Generalized anxiety disorder (ICD-10 - F41.1) 10/30/2024 Bipolar II disorder (ICD-10 - F31.81) 11/27/2024 Bipolar II disorder (ICD-10 - F31.81) 12/14/2024 Encounter for screening for cardiovascular disorders (ICD-10 - Z13.6) 01/18/2025 Bipolar II disorder (ICD-10 - F31.81) Imported from [employer]: The patient has had multiple encounters with healthcare providers from March 2024 to January 2025. The patient has been primarily seen by Dr. Jeffery Lopez at [facility] and Dr. Jovany Silverman at [facility]. The patient has been diagnosed with several conditions including Hyperlipidemia , Hyperparathyro idism, Primary Hypertension, and Syncope. 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 This was first noted during an office visit with Dr. Silverman on July 13, 2024. The patient has also had multiple scans and external device data reviews at both [facility] and [facility]. The patient was hospitalized on September 09, 2024, and December 17, 2024, for chest pain of unknown etiology and other existing conditions. 01/29/2025 Generalized anxiety disorder (ICD-10 - F41.1) 03/10/2025 Bipolar II disorder (ICD-10 - F31.81) 03/10/2025 Generalized anxiety disorder (ICD-10 - F41.1) 12/25/2024 Generalized anxiety disorder (ICD-10 - F41.1) 04/19/2025 Bipolar II disorder (ICD-10 - F31.81) Imported from [employer]: The patient has had multiple encounters with healthcare providers from March 2024 to January 2025. The patient has been primarily seen by Dr. Jeffery Lopez at [facility] and Dr. Jovany Silverman at [facility]. The patient has been diagnosed with several conditions including Hyperlipidemia , Hyperparathyro idism, Primary Hypertension, and Syncope. 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 This was first noted during an office visit with Dr. Silverman on July 13, 2024. The patient has also had multiple scans and external device data reviews at both [facility] and [facility]. The patient was hospitalized on September 09, 2024, and December 17, 2024, for chest pain of unknown etiology and other existing conditions. 07/19/2025 Bipolar II disorder (ICD-10 - F31.81) Imported from [employer]: The patient has had multiple encounters with healthcare providers from March 2024 to January 2025. The patient has been primarily seen by Dr. Jefefry Lopez at [facility] and Dr. Jovany Silverman at [facility]. The patient has been diagnosed with several conditions including Hyperlipidemia , Hyperparathyro idism, Primary Hypertension, and Syncope. 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 This was first noted during an office visit with Dr. Silverman on July 13, 2024. The patient has also had multiple scans and external device data reviews at both [facility] and [facility]. The patient was hospitalized on September 09, 2024, and December 17, 2024, for chest pain of unknown etiology and other existing conditions. 07/19/2025 Generalized anxiety disorder (ICD-10 - F41.1) Imported from [employer]: The patient has had multiple encounters with healthcare providers from March 2024 to January 2025. The patient has been primarily seen by Dr. Jeffery Lopez at [facility] and Dr. Jovany Silverman at [facility]. The patient has been diagnosed with several conditions including Hyperlipidemia , Hyperparathyro idism, Primary Hypertension, and Syncope. 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 This was first noted during an office visit with Dr. Silverman on July 13, 2024. The patient has also had multiple scans and external device data reviews at both [facility] and [facility]. The patient was hospitalized on September 09, 2024, and December 17, 2024, for chest pain of unknown etiology and other existing conditions. 01/29/2025 Bipolar II disorder (ICD-10 - F31.81) 04/19/2025 Generalized anxiety disorder (ICD-10 - F41.1) Imported from [employer]: The patient has had multiple encounters with healthcare providers from March 2024 to January 2025. The patient has been primarily seen by Dr. Jeffery Lopez at [facility] and Dr. Jovany Silverman at [facility]. The patient has been diagnosed with several conditions including Hyperlipidemia , Hyperparathyro idism, Primary Hypertension, and Syncope. 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 This was first noted during an office visit with Dr. Silverman on July 13, 2024. The patient has also had multiple scans and external device data reviews at both [facility] and [facility]. The patient was hospitalized on September 09, 2024, and December 17, 2024, for chest pain of unknown etiology and other existing conditions. 03/10/2025 Encounter for screening for depression (ICD-10 - Z13.31) 01/18/2025 Generalized anxiety disorder (ICD-10 - F41.1) Imported from [employer]: The patient has had multiple encounters with healthcare providers from March 2024 to January 2025. The patient has been primarily seen by Dr. Jeffery Lopez at [facility] and Dr. Jovany Silverman at [facility]. The patient has been diagnosed with several conditions including Hyperlipidemia , Hyperparathyro idism, Primary Hypertension, and Syncope. 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 This was first noted during an office visit with Dr. Silverman on July 13, 2024. The patient has also had multiple scans and external device data reviews at both [facility] and [facility]. The patient was hospitalized on September 09, 2024, and December 17, 2024, for chest pain of unknown etiology and other existing conditions. 12/14/2024 Dietary counseling and surveillance (ICD-10 - Z71.3) 12/25/2024 Bipolar II disorder (ICD-10 - F31.81) 11/27/2024 Generalized anxiety disorder (ICD-10 - F41.1) 10/26/2024 Bipolar II disorder (ICD-10 - F31.81) 10/30/2024 Generalized anxiety disorder (ICD-10 - F41.1) 09/25/2024 Generalized anxiety disorder (ICD-10 - F41.1) 08/28/2024 Generalized anxiety disorder (ICD-10 - F41.1) 10/26/2024 Hyperparathyroid ism, unspecified (ICD-10 - E21.3) managed by pcp 12/14/2024 Encounter for screening for depression (ICD-10 - Z13.31) 01/18/2025 Encounter for screening for cardiovascular disorders (ICD-10 - Z13.6) Imported from [employer]: The patient has had multiple encounters with healthcare providers from March 2024 to January 2025. The patient has been primarily seen by Dr. Jeffery Lopez at [facility] and Dr. Jovany Silverman at [facility]. The patient has been diagnosed with several conditions including Hyperlipidemia , Hyperparathyro idism, Primary Hypertension, and Syncope. 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 This was first noted during an office visit with Dr. Silverman on July 13, 2024. The patient has also had multiple scans and external device data reviews at both [facility] and [facility]. The patient was hospitalized on September 09, 2024, and December 17, 2024, for chest pain of unknown etiology and other existing conditions. 04/19/2025 Hyperparathyroid ism, unspecified (ICD-10 - E21.3) managed by pcp Imported from [employer]: The patient has had multiple encounters with healthcare providers from March 2024 to January 2025. The patient has been primarily seen by Dr. Jeffery Lopez at [facility] and Dr. Jovany Silverman at [facility]. The patient has been diagnosed with several conditions including Hyperlipidemia , Hyperparathyro idism, Primary Hypertension, and Syncope. 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 This was first noted during an office visit with Dr. Silverman on July 13, 2024. The patient has also had multiple scans and external device data reviews at both [facility] and [facility]. The patient was hospitalized on September 09, 2024, and December 17, 2024, for chest pain of unknown etiology and other existing conditions. 07/19/2025 Hyperparathyroid ism, unspecified (ICD-10 - E21.3) managed by pcp Imported from [employer]: The patient has had multiple encounters with healthcare providers from March 2024 to January 2025. The patient has been primarily seen by Dr. Jeffery Lopez at [facility] and Dr. Jovany Silverman at [facility]. The patient has been diagnosed with several conditions including Hyperlipidemia , Hyperparathyro idism, Primary Hypertension, and Syncope. 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 This was first noted during an office visit with Dr. Silverman on July 13, 2024. The patient has also had multiple scans and external device data reviews at both [facility] and [facility]. The patient was hospitalized on September 09, 2024, and December 17, 2024, for chest pain of unknown etiology and other existing conditions. 01/18/2025 Dietary counseling and surveillance (ICD-10 - Z71.3) Imported from [employer]: The patient has had multiple encounters with healthcare providers from March 2024 to January 2025. The patient has been primarily seen by Dr. Jeffery Lopez at [facility] and Dr. Jovany Silverman at [facility]. The patient has been diagnosed with several conditions including Hyperlipidemia , Hyperparathyro idism, Primary Hypertension, and Syncope. 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 This was first noted during an office visit with Dr. Silverman on July 13, 2024. The patient has also had multiple scans and external device data reviews at both [facility] and [facility]. The patient was hospitalized on September 09, 2024, and December 17, 2024, for chest pain of unknown etiology and other existing conditions. 12/14/2024 Generalized anxiety disorder (ICD-10 - F41.1) 01/18/2025 Encounter for screening for depression (ICD-10 - Z13.31) Imported from [employer]: The patient has had multiple encounters with healthcare providers from March 2024 to January 2025. The patient has been primarily seen by Dr. Jeffery Lopez at [facility] and Dr. Jovany Silverman at [facility]. The patient has been diagnosed with several conditions including Hyperlipidemia , Hyperparathyro idism, Primary Hypertension, and Syncope. 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 This was first noted during an office visit with Dr. Silverman on July 13, 2024. The patient has also had multiple scans and external device data reviews at both [facility] and [facility]. The patient was hospitalized on September 09, 2024, and December 17, 2024, for chest pain of unknown etiology and other existing conditions. 12/14/2024 Bipolar II disorder (ICD-10 - F31.81) 12/14/2024 Hyperparathyroid ism, unspecified (ICD-10 - E21.3) managed by pcp 01/18/2025 Hyperparathyroid ism, unspecified (ICD-10 - E21.3) managed by pcp Imported from [employer]: The patient has had multiple encounters with healthcare providers from March 2024 to January 2025. The patient has been primarily seen by Dr. Jeffery Lopez at [facility] and Dr. Jovany Silverman at [facility]. The patient has been diagnosed with several conditions including Hyperlipidemia , Hyperparathyro idism, Primary Hypertension, and Syncope. 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 This was first noted during an office visit with Dr. Silverman on July 13, 2024. The patient has also had multiple scans and external device data reviews at both [facility] and [facility]. The patient was hospitalized on September 09, 2024, and December 17, 2024, for chest pain of unknown etiology and other existing conditions. 08/28/2024 Other Client reports she and will [...] regimen. - Plan: Continue oxcarbazepine 300 mg, neg-xin-f-half tablets daily. Monitor mood stability during follow-up visits. 2. Anxiety - Patient reports minimal use of lorazepam, indicating well-controlled anxiety. - Plan: No need to refill lorazepam prescription at this time. Patient has a full bottle and can use as needed. Continue monitoring anxiety during follow-up visits. 3. Sleep - Patient reports good sleep quality without the need for additional medication. - Plan: Continue current sleep routine. Reassess sleep quality during follow-up visits. 4. Pharmacy change - Patient has switched from [facility] pharmacy to [facility] in [place]. - Plan: Update pharmacy information in the [...] or shred the letter). 11/27/2024 Other Cliente report s her mood and life and been going smoothly. She states that her grandson that attends [employer] has been stopping by their house after [...] clinician of primary care physician's assessment and recommendations . - Follow up with psychiatry on January [...] managed with current medication regimen. No specific anxiety-related complaints were reported during this visit. Plan: [...] primarily seen by Dr. Jeffery Lopez at [facility] and Dr. Jovany Silverman at [facility]. The patient has been diagnosed with several conditions including Hyperlipidemia , Hyperparathyro idism, Primary Hypertension, and Syncope. 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 This was first noted during an office visit with Dr. Silverman on July 13, 2024. The patient has also had multiple scans and external device data reviews at both [facility] and [facility]. The patient was hospitalized on September 09, [...] acceptance. 03/10/2025 Other Client continues to be concerned/worri ed about her daughter who is going through [...] primarily seen by Dr. Jeffery Lopez at [facility] and Dr. Jovany Silverman at [facility]. The patient has been diagnosed with several conditions including Hyperlipidemia , Hyperparathyro idism, Primary Hypertension, and Syncope. 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 This was first noted during an office visit with Dr. Silverman on July 13, 2024. The patient has also had multiple scans and external device data reviews at both [facility] and [facility]. The patient was hospitalized on September 09, 2024, and December 17, 2024, for chest pain of unknown etiology and other existing conditions. 07/19/2025 Lavonne Jacques, a 78-year-old female patient, presents for medication management and follow-up, reporting stable mood and medication adherence. Mood disorder Assessment: Patient reports stable mood with current medication regimen. She acknowledges the importance of medication adherence, noting increased agitation (yipey) when she missed a dose of Oxcarbazepine . Patient is managing well with her current treatment plan, including Oxcarbazepine and lorazepam. Plan: - Continue Oxcarbazepine - Continue lorazepam as needed - Patient to take medications after breakfast with vitamins - Follow-up appointment in 3 months the note is transcribed using speech recognition [...] has been primarily seen by Dr. Jeffery oLpez at [facility] and Dr. Jovany Silverman at [facility]. The patient has been diagnosed with several conditions including Hyperlipidemia , Hyperparathyro idism, Primary Hypertension, and Syncope. 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 This was first noted during an office visit with Dr. Silverman on July 13, 2024. The patient has also had multiple scans and external device data reviews at both [facility] and [facility]. The patient was hospitalized on September 09, 2024, and December 17, 2024, for chest pain of unknown etiology and other existing conditions. Plan Of Treatment Next Appt Details Provider Name:Wesley thakur, 10/19/2025 01:30:00 PM, [address] [facility] [address] [facility] [address], [place], [address], Insurance Providers Payer Name Payer Address Payer Phone Subscriber Number Group Number Insured Name Patient Relationship to Insured Coverage Start Date Coverage End Date Medicare-I l Medicare [address] [place] [address] [id number] BRENDA JACQUES Self - patient is the insured [employer] [employer] [address] [place] [address] [id number] BRENDA JACQUES Self - patient is the insured Medical (General) History Medical History History ICD Code Problems: Bipolar II disorder Generalized anxiety disorder Hyperparathyroidism Malignant neoplasm of upper-inner quadra nt of female breast , Surgical History Surgery Date(Month/Year) Removal of gallbladder (78755) Breast surgery (27693) 08/29/2020
== END 2025-08-02 10:59 | disposition home or self-care (01) ==
LOC: ANHFOHIMG 11:00
PROVIDERS: PCP Student in an Organized Health Care Education/Training Program; Visit Provider Internal Medicine Hematology & Oncology
DX: M85.89 Other specified disorders of bone density and structure, multiple sites (principal)
CPT/HCPCS: 77080